=== PATIENT | female | born 1980 | race Caucasian/White ===

== ENCOUNTER → 2017-09-06 20:39 | Emergency (ER) | payer MEDICARE ==
[~2017-09-06 20:39] MED LIST: Lidocaine PATCH 5%* 1 PATCH TRANSDERM SCH; NS 0.9% 1000 ML* 1,000 ML IV ONE; PROCHLORPERAZINE INJ 5 MG/ML 2 ML VIAL IV ONE; diPHENhydraMINE IV* 50 MG/ML 1 ml VIAL (BENADRYL) IV ONE; methylPREDNISolone SOD 40 MG* 1 ML VIAL IV ONE
[2017-09-06 20:47] VITALS: BP 139/91
--- OUTSIDE RECORDS SUMMARY | 2017-09-06 21:08 | XMS REPORT ---
:1980 External Reference #:[id number] Author Organization [facility] Address [address] [place] [address] Phone [phone] Care Team Providers Name Role Phone Jazmin Shanks M.D. Care Team Information Milling Supervisor Unavailable Jazmin Shanks M.D. Primary Care Physician Unavailable Payers Type Date Identification Numbers Payment Provider Subscriber Medicare Primary Policy Number: [id number] Medicare [place] PayID: [id number] [address] [place] [address] Medigap Part B Effective: Policy Number: Out Of Area [place] 2016 [id number] BCBS Expires: 2017 PayID: [id number] [address] [address] [place] [address] Problems Description No Information Family History Date Family Member(s) Problem(s) Comments : (age 49 Father due to Suicide Years) Mother 70 Mother Mental Illness : (age 20 First Sister due to Bleeding Placenta Previa Years) : (age 44 Second Sister due to Dilated Years) cardiomyopathy Second Sister Carcinoma Of Thyroid Social History Type Date Description Comments Marital Status Legal Status: Occupation Disabled ETOH Use Denies alcohol use Smoking Nonsmoker Allergies, Adverse Reactions, Alerts Date Description Reaction Status Severity Comments 08/14/2017 Sulfa active 08/14/2017 Celexa active Medications Medication Date Status Form Strength Qnty SIG Indications Ordering Provider Pepperment 08/14/ Active Spirit 2 po tid 2017 Shantel valdez MD Temazepam / Active Capsules 30mg 15cap take 1 Hank T. s capsule Shantel by mouth MD courtney at bedtime Sucralfate / Active Tablets 1gm take 1 by Unknown 0000 mouth 4 times per day: before meals and at bedtime Dicyclomine HCL / Active Capsules 10mg 1 po 4x Unknown 0000 day before meals and at hs Quetiapine / Active Tablets 300mg take 1 Unknown Fumarate 0000 tablet by mouth every evening at bedtime Estradiol / Active Tablets 1mg 1 by Unknown 0000 mouth every day Lorazepam / Active Tablets 1mg 90tab take up Hank Hsu 0000 s to 6 Shantel tablets MD courtney by mouth daily Omeprazole / Active Capsules 40mg 1 po bid Unknown [address] DR Buspirone HCL / Active Tablets 10mg 3 po bid Unknown 0000 Lamotrigine / Active Tablets 100mg 2 1/2 Unknown 0000 tablets po q hs Fluvoxamine / Active Tablets 100mg 3 tabs po Unknown Maleate 0000 q hs Tramadol HCL / Active Tablets 50mg 120ta 1 by Hank Hsu 0000 bs mouth Shantel four MD courtney times a day Topiramate / Active Tablets 100mg 1 po bid Unknown 0000 Clonazepam / Active Tablets 1mg 30tab 2 by Hank Hsu 0000 s mouth Shantel every at MD courtney bedtime Ondansetron / Active Tablets 4mg 1 orally Unknown 0000 Dispers q 8 hr prn Nystatin / Active Cream [id number] apply to Unknown 0000 /GM affected area 2x day until rash resolved Nasacort Allergy / Active Aerosol 55mcg/Act spray 2 Unknown 24HR 0000 sprays in each nostril qd Acetaminophen / Active Tablets 500mg 2 po q 6 Unknown 0000 hr prn Ibuprofen 200 / Active Tablets 200mg 2 po q 6 Unknown 0000 hrs prn Diphenhydramine / Active Capsules 25mg 2 po q 6 Unknown HCL 0000 hr prn Loperamide HCL / Active Capsules 2mg 2-4 Unknown 0000 capsules bid prn Artificial Tears / Active Solution 0.1-0.3% prn Unknown PF 0000 Systane Nighttime / Active Ointment use at Unknown 0000 bedtime prn Calcium Magnesium / Active Tablets 300-300mg 1 po tid Unknown 750 0000 Multivitamin / Active Chewtabs on po bid Unknown Adult 0000 Vitamin D3 / Active Capsules 50mcg 1 by Unknown 0000 mouth every day Vitamin B12 / Active Tablets 100mcg qd Unknown 0000 Vitamin C / Active Chewtabs 500mg 1 po qd Unknown 0000 Culturelle / Active Capsules 1 po qd Unknown Digestive Health 0000 Apple Cider / Active Capsules 188mg 1 po bid Unknown Vinegar 0000 Vital Signs Date Vital Result Comment 08/14/2017 BP Systolic 120 mmHg BP Diastolic 68 mmHg Heart Rate 84 /min Body Temperature 98.2 F Respiratory Rate 16 /min Height 69 inches 5'9" Weight 193.00 lb BMI (Body Mass Index) 28.5 kg/m2 Results Description No Information Procedures Description No Information Plan of Care Future Appointment(s):11/20/2017 1:20 pm - Hank Edwards MD at [facility] Cuvhbx2608/14/2017 - Hank Edwards MDF41.1 Generalized anxiety jhhhykdtM53.12 Post-traumatic stress disorder, adducvvK68.26 Other intervertebral disc displacement, lumbar gezmlzS81.93 Unspecified Eustachian tube disorder, hdpvdxkvrL11.4 Chronic pain coqwcfxmC20.4 Chronic or unspecified duodenal ulcer with hemorrhageAllNew Medication:PeppermentComments:~B_~U_ Medication Management~b_~u_ Patient Understands medications she's taking? Yes No Are there Barriers to Adherence? Yes No Has the patient been asked about herbal supplements and therapies, and OTC meds? Yes No
--- NOTE | 2017-09-06 22:31 | ED ---
Complex/Multi-Sys Presentation - HPI Summary HPI Summary: Patient presents with multiple issues this evening. Reports she has acute on chronic lower back pain which she's had for many years. Reports she was diagnosed with degenerative disease in her 20s and had a laminectomy of her L5- S1 in her 30s in [place]. She gets radicular symptoms down her right side LE however tonight she is getting them worse than usual and into the left side which is new. Denies weakness however she has paresthesia on the right which is normal for her - no change tonight. No paresthesia or weakness in the left. Denies change in bowel or bladder habits and no saddle paresthesia. She denies any acute injury to have triggered her symptoms however she admits she's been more active since she moved here to [place] from [place] about a month ago. Admits she went through a prolonged divorce while there and has finally made it here. She is living with a close friend and has her young children with her as well. Her children have required mental health counseling and so she's been putting them in front of her own healthcare needs however she has established with a PCP. She is still trying to get her MRI images from [place] released to her current PCP so she may follow-up with neurology/neurosurgery. Additionally, she reports she is experiencing a migraine headache. She admits she gets these a couple times a month and is able to rescue herself with acetaminophen, Benadryl and Zofran however she's not had relief with this attempt this time. She takes Topamax 2 times a day which has reduced her number of migraines. She denies fever, chills, neck pain or stiffness, mid back pain although she reports some intermittent finger tingling during her migraine symptoms. No change in vision although she has some mild photophobia and is just exhausted from trying to fight to the pain of both her migraine and her lower back pain with radicular symptoms. History of gastric bypass surgery - she is not supposed to take NSAIDs and has a history of gastric ulcer. Also has many allergies to mental health medications. - History Of Current Complaint Chief Complaint: EDBackInjuryPain Time Seen by Provider: 09/06/17 21:32 Hx Obtained From: Patient - Allergies/Home Medications Allergies/Adverse Reactions: Allergies Allergy/AdvReac Type Severity Reaction Status Date / Time citalopram [From Celexa] Allergy Hives Verified 09/06/17 20:44 fluconazole Allergy Anaphylatic Verified 09/06/17 20:44 Shock midazolam [From Versed] Allergy Unknown Verified 09/06/17 20:44 Reaction Details nitrofurantoin Allergy Hives Verified 09/06/17 20:44 [From Macrobid] Sulfa (Sulfonamide Allergy Hives Verified 09/06/17 20:44 Antibiotics) venlafaxine [From Effexor] Allergy Hives Verified 09/06/17 20:44 Home Medications: Home Medications Acetaminophen [Tylenol] 1,000 mg PO Q6H PRN 09/06/17 [History Confirmed 09/06/17 ] Calcium Carbonate [Calcium] 1,000 mg PO DAILY 09/06/17 [History Confirmed ] Cyanocobalamin TAB* [Vitamin B12 TAB*] 500 mcg PO DAILY 09/06/17 [History Confirmed 09/06/17] Dicyclomine CAP* [Bentyl CAP*] 10 mg PO QID 09/06/17 [History Confirmed 09/06/17 ] Estradiol 1 mg PO DAILY 09/06/17 [History Confirmed 09/06/17] FluvoxaMINE (NF) [Fluvoxamine (NF)] 300 mg PO BEDTIME 09/06/17 [History Confirmed 09/06/17] LORazepam TAB(*) [Ativan 1 MG TAB (*)] 1 mg PO Q4H PRN 09/06/17 [History Confirmed 09/06/17] Magnesium Oxide [Magnesium] 400 mg PO DAILY 09/06/17 [History Confirmed 09/06/17 ] Multivitamin [Multivitamins] 1 cap PO BID 09/06/17 [History Confirmed 09/06/17] Omeprazole CAP* [Prilosec CAP* 20 MG] 40 mg PO BID 09/06/17 [History Confirmed 09/06/17] Ondansetron ODT TAB* [Zofran 4 MG Odt TAB*] 4 mg PO Q8H PRN 09/06/17 [History Confirmed 09/06/17] QUEtiapine TAB* [Seroquel 300 MG TAB*] 300 mg PO BEDTIME 09/06/17 [History Confirmed 09/06/17] Sucralfate TAB* [Carafate*] 1 gm PO QID 09/06/17 [History Confirmed 09/06/17] Temazepam CAP* [Restoril CAP*] 30 mg PO BEDTIME 09/06/17 [History Confirmed 02/23] Topiramate TAB(*) [Topamax 100 mg tab] 100 mg PO BID 09/06/17 [History Confirmed 09/06/17] Vitamin B Complex CAP* [B Complex CAP*] 1 cap PO DAILY 09/06/17 [History Confirmed 09/06/17] Vitamin D3 CAP/TAB (NF) 50 mcg PO DAILY 09/06/17 [History Confirmed 09/06/17] busPIRone TAB* [Buspar TAB*] 30 mg PO BID 09/06/17 [History Confirmed 09/06/17] clonazePAM TAB(*) [KlonoPIN TAB(*)] 2 mg PO BEDTIME 09/06/17 [History Confirmed 09/06/17] diphenhydrAMINE HCl [Benadryl Allergy] 50 mg PO DAILY PRN 09/06/17 [History Confirmed 09/06/17] lamoTRIgine TAB(*) [LaMICtal TAB(*)] 250 mg PO BEDTIME 09/06/17 [History Confirmed 09/06/17] traMADol TAB* [Ultram*] 50 mg PO Q6HR PRN 09/06/17 [History Confirmed 09/06/17] PMH/Surg Hx/FS Hx/Imm Hx Previously Healthy: Yes Endocrine/Hematology History: Denies: Hx Anticoagulant Therapy, Hx Blood Disorders, Autoimmune Disease Musculoskeletal History: Reports: Hx Back Problems - DDD dx'd in 20's; laminectomy in 30's - chronic LBP w/ radicular Rt pain EENT History: Reports: Other - eustachian tube dysfunction - myringotomy recently -no fever, no draniage Neurological History: Reports: Hx Migraine - takes daily topamax Psychiatric History: Reports: Hx Depression Infectious Disease History: No Infectious Disease History: Denies: Traveled Outside the [place] in Last 30 Days - Social History Lives: With Family Alcohol Use: Rare Substance Use Type: Reports: Prescribed Hx Tobacco Use: No Smoking Status (MU): Never Smoked Tobacco Review of Systems Constitutional: Negative Negative: Fever, Chills, Fatigue Positive: Photophobia. Negative: Blurred Vision, Diplopia ENT: Other - myringotomy B/L - no drainage Cardiovascular: Negative Respiratory: Negative Gastrointestinal: Negative Genitourinary: Negative Positive: Arthralgia, Myalgia Skin: Negative Positive: Headache All Other Systems Reviewed And Are Negative: Yes Physical Exam Triage Information Reviewed: Yes Vital Signs On Initial Exam: Initial Vitals Temp Pulse Resp BP Pulse Ox 98.1 F 75 18 139/91 98 09/06/17 20:44 09/06/17 20:44 09/06/17 20:44 09/06/17 20:44 09/06/17 20:44 Vital Signs Reviewed: Yes Appearance: Positive: Well-Appearing - good color, Well-Nourished, Pain Distress - sitting in chair with Rt leg flexed toward body and Lt leg extended - she shifts throughout eval - able to transition from chair to standing to into bed w/o difficutly or assistance Skin: Positive: Warm, Skin Color Reflects Adequate Perfusion, Dry - no ecchymosis, no erythema Head/Face: Positive: Normal Head/Face Inspection Eyes: Positive: Normal, EOMI, SHAR - no photophobia, Conjunctiva Clear ENT: Positive: Normal ENT inspection, Hearing grossly normal, Pharynx normal - mucosa moist, TMs normal - tubes in places B/L - no erythema, no drainage, no edema. Negative: Tonsillar swelling, Tonsillar exudate, Trismus, Muffled voice Dental: Negative: Abscess @ Neck: Positive: Nontender, No Lymphadenopathy, Other: - hypertonic scalenes Respiratory/Lung Sounds: Positive: Clear to Auscultation, Breath Sounds Present Cardiovascular: Positive: Normal, RRR, Pulses are Symmetrical in both Upper and Lower Extremities. Negative: Leg Edema Left, Leg Edema Right Musculoskeletal: Positive: Strength/ROM Intact, Pain @ - w/ flexion hips but is able to do so Neurological: Positive: Alert, Oriented to Person Place, Time, CN Intact II- III. Negative: Sensory/Motor Intact - motor intact but reports decreased sensation over Rt lateral LE which is unchanged from previous Psychiatric: Positive: Depressed Diagnostics - Vital Signs Vital Signs Temp Pulse Resp BP Pulse Ox 09/06/17 20:44 98.1 F 75 18 139/91 98 - Laboratory Lab Statement: Any lab studies that have been ordered have been reviewed, and results considered in the medical decision making process. Re-Evaluation - Re-Evaluation First Eval Change: Improved - FLORES somewhat improved w/ migraine cocktail - LBP still bothering her - she was sleeping upon recheck and appears comfortable lying on Lt side in stretcher Complex Multi-Symp Course/Dx Course Of Treatment: CT: DDD and disc herniation w/o central canal stenosis - multilevels with foraminal narrowing and what appears to be scar tissue. W/o neuro deficits tonight, will tx w/ steroid and have pt f/u w/ neurosurgery as her PCP as initiated. She will take her CD of her CT with her to her appt to aid in expediting her care as they have been waiting for an MRI from [place] and pt reports [place] medical staff has been giving her a hard time about releasing these records. Reviewed danger s/sx of when to return to ED. Pt agrees w plan - Diagnoses Provider Diagnoses: Lumbar disc herniation with radiculopathy, Migraine Discharge - Sign-Out/Discharge Documenting (check all that apply): Patient Departure - Discharge Plan Condition: Stable Disposition: HOME Prescriptions: predniSONE TAB* [Deltasone 20 MG TAB*] 60 mg PO DAILY #15 tab Patient Education Materials: Lumbar Radiculopathy (ED), Migraine Headache (ED) - Billing Disposition and Condition Condition: STABLE Disposition: Home
--- NOTE | 2017-09-07 07:43 | RAD ---
HISTORY: LBP w/ radiation into LE's history of laminectomy COMPARISONS: None TECHNIQUE: Multiple contiguous axial CT scans were obtained of the lumbar spine without intravenous contrast, with coronal and sagittal multiplanar reformations. FINDINGS: SPINAL CANAL: Evaluation of the central canal is limited on CT technique; however, there is no obvious canalicular mass or epidural hemorrhage. There is fusiform narrowing of central canal secondary to congenitally short pedicles. ALIGNMENT: There is minimal dextroscoliotic curvature of the spine. VERTEBRAL BODIES: There is mild anterolateral marginal osteophyte formation most pronounced at L5-S1. There is post surgical change to the right hemilamina at L5-S1. JOINTS: There is no subluxation or dislocation. MUSCULATURE: Unremarkable INTERVERTEBRAL DISCS: There is diffuse loss of intervertebral disc height throughout the spine. AXIAL IMAGES: T10-T11: There is no osseous neural foraminal narrowing or focal central canal stenosis. T11-T12: There is no osseous neural foraminal narrowing or focal central canal stenosis. T12-L1: There is no osseous neural foraminal narrowing or focal central canal stenosis. L1-L2: There is no osseous neural foraminal narrowing or focal central canal stenosis. L2-L3: There is no osseous neural foraminal narrowing or focal central canal stenosis. L3-L4: There is marginal osteophyte formation at the neural foramina bilaterally. There is moderate bilateral neuroforaminal narrowing. There is mild focal narrowing of the central canal. L4-L5: There is broad-based disc bulge. There is marginal osteophyte formation at the neural foramina bilaterally. There is moderate right neuroforaminal narrowing. There is mild focal narrowing of the central canal. L5-S1: There is marginal osteophyte formation at the neural foramina with right greater than left facet hypertrophy. There is severe right neural foraminal narrowing. There is asymmetric soft tissue density within the epidural space anteriorly in the right. There is no focal osseous central canal stenosis. SOFT TISSUES: There is post surgical change to the projected tract. There is large amount of stool within the colon. The visualized soft tissues of the abdomen are otherwise unremarkable. OTHER: None IMPRESSION: 1. FUSIFORM NARROWING OF THE CENTRAL CANAL SECONDARY TO CONGENITALLY SHORT PEDICLES. 2. THERE IS MORE FOCAL MILD NARROWING OF CENTRAL CANAL AT L3-L4 AND L4-L5. 3. THERE IS MULTILEVEL NEUROFORAMINAL NARROWING DESCRIBED ABOVE, MOST PRONOUNCED ON THE RIGHT AT L5-S1. 4. THERE IS MINIMAL SOFT TISSUE DENSITY WITHIN THE SUBDURAL SPACE ON THE RIGHT WHICH MAY BE POSTSURGICAL EPIDURAL FIBROSIS, THOUGH RESIDUAL/RECURRENT DISC PROTRUSION IS WITHIN THE DIFFERENTIAL. R2
== END | disposition home or self-care (01) ==
LOC: ED 20:39
DX: M51.16 Intervertebral disc disorders with radiculopathy, lumbar region (principal); G43.909 Migraine, unspecified, not intractable, without status migrainosus; Z79.899 Other long term (current) drug therapy; Z88.2 Allergy status to sulfonamides; Z88.8 Allergy status to other drugs, medicaments and biological substances
CPT/HCPCS: 72131; 96361; 96374; 96375; 99283; J0780; J1200; J2920

== ENCOUNTER 2017-11-05 09:40 | Observation (INO) | payer MEDICARE ==
--- OUTSIDE RECORDS SUMMARY | 2017-11-05 10:13 | XMS REPORT ---
:1980 External Reference #:[id number] Author Organization [facility] Address [address] [place] [address] Phone [phone] Care Team Providers Name Role Phone Jazmin Shanks M.D. Care Team Information Information Scientist Unavailable Jazmin Shanks M.D. Primary Care Physician Unavailable Payers Type Date Identification Numbers Payment Provider Subscriber Medicare Primary Effective: Policy Number: Medicare [place] 2013 [id number] PayID: [id number] [address] [address] Medigap Part B Effective: Policy Number: Out Of Area Austin Ventura 2016 [id number] [place] Expires: 2017 PayID: [id number] [address] [address] [place] [address] Problems Description No Information Family History Date [...] po tid 2017 Shantel valdez MD Temazepam 00// Active Capsules 30mg 30cap take 1 Hank T. s capsule Shantel by mouth MD courtney at bedtime Sucralfate / Active Tablets 1gm 120ta take 1 by Beverley Amezcua 0000 bs mouth 4 Carroll, times per ROOMING HOUSE INSPECTOR day: before meals and at bedtime Dicyclomine HCL / Active Capsules 10mg 120ca 1 by Beverley Amezcua 0000 ps mouth 4x Carroll, day ROOMING HOUSE INSPECTOR before meals and at at bedtime Quetiapine / Active Tablets 300mg take 1 Unknown Fumarate 0000 tablet by mouth every evening at bedtime Estradiol / Active Tablets 1mg 90tab 1 by Beverley Amezcua 0000 s mouth Carroll, every day ROOMING HOUSE INSPECTOR Lorazepam / Active Tablets 1mg 180ta take up Hank Hsu 0000 bs to 6 Shantel tablets MD courtney by mouth daily Omeprazole / Active Capsules 40mg 60cap 1 by Beverley Amezcua [address] DR s mouth Carroll, twice a ROOMING HOUSE INSPECTOR day Buspirone HCL / Active Tablets 10mg 3 po bid Unknown 0000 Lamotrigine / Active Tablets 100mg 2 1/2 Unknown 0000 tablets po q hs Fluvoxamine / Active Tablets 100mg 3 tabs po Unknown Maleate 0000 q hs Tramadol HCL / Active Tablets 50mg 180ta 1-2 by Beverley Amezcua 0000 bs mouth Carroll, four ROOMING HOUSE INSPECTOR times a day Topiramate / Active Tablets 100mg 1 po bid Unknown 0000 Clonazepam / Active Tablets 1mg 60tab 2 by Hank Hsu 0000 s mouth Shantel every at MD courtney bedtime Nystatin / Active Cream [id number] apply to Unknown 0000 /GM affected area 2x day until rash resolved Nasacort Allergy / Active Aerosol 55mcg/Act spray 2 Unknown 24HR 0000 sprays in each nostril qd Acetaminophen 00/ Active Tablets 500mg 2 po q 6 Unknown 0000 hr prn Ibuprofen 200 00// Active Tablets 200mg 2 po q 6 [...] 500mg 1 po qd Unknown 0000 Culturelle 00/ Active Capsules 1 po qd Unknown Digestive Health 0000 Apple Cider / Active Capsules 188mg 1 po bid Unknown Vinegar 0000 Prednisone / Active Tablets 3 po qd Unknown 0000 x5 days Ondansetron / Active Tablets 4mg 60tab 1 orally Beverley Amezcua 0000 Dispers s every 8 Carroll, hour as ROOMING HOUSE INSPECTOR needed for nausea or migraine Meloxicam 09/09/ Hx Tablets 15mg 14tab 1 by M54.16 Beverley Amezcua 2018 - s mouth Carroll, 10/12/ every day ROOMING HOUSE INSPECTOR 2018 until pain resolves Vital Signs Date Vital Result Comment 10/12/2017 BP Systolic 110 mmHg BP Diastolic 70 mmHg Heart Rate 76 /min Body Temperature 97.6 F Respiratory Rate 17 /min 09/09/2017 BP Systolic 114 mmHg BP Diastolic 60 mmHg Heart Rate 72 /min Body Temperature 98.1 F Respiratory Rate 16 /min Height 69 inches 5'9" Weight 193.00 lb BMI (Body Mass Index) 28.5 kg/m2 08/14/2017 BP Systolic 120 mmHg BP Diastolic 68 mmHg Heart Rate 84 /min Body Temperature 98.2 F Respiratory Rate 16 /min Height 69 inches 5'9" Weight 193.00 lb BMI (Body Mass Index) 28.5 kg/m2 Results Test Date Test Result H/L Range Note Laboratory test finding 09/09/2017 Quickstrep NEG Negative Procedures Description No Information Encounters Type Date Location Provider CPT E/M Dx Office Visit 09/09/2017 10:00a [place] [address] G89.4 M54.16 J02.9 Office Visit 08/14/2017 1:50p [place] [address] F41.1 F43.12 M51.26 H69.93 G89.4 K26.4 Plan of Care Future Appointment(s):11/20/2017 1:20 pm - Hank [facility]10/12/2017 - Beverley Hodges, NPG89.4 Chronic pain syndromeComments:We will continue to work on referring you to the pain clinic.M54.16 Radiculopathy, lumbar regionComments:You may benefit from a neurosurgical referral.K26.4 Chronic or unspecified duodenal ulcer with hemorrhageComments:Continue medication.
--- OUTSIDE RECORDS SUMMARY | 2017-11-05 10:13 | XMS REPORT | Continuity of Care Document ---
:1980 External Reference #:[id number] Author Name Bakari Pablo MD Address Delores [address] [place] [address] Care Team Providers Name Role Phone Hank Edwards M.D. Care Team Information Marine Designer Unavailable Hank Edwards M.D. Primary Care Physician Unavailable Payers Type Date Identification Numbers Payment Provider Subscriber Policy Number: [id number] [place] Carley Ventura PayID: [id number] [address] [facility] [place] [address] Advance Directives Description No Information Available Problems Date Description Provider Status Onset: 10/30/2017 Other specified disorders of Eustachian Bakari Pablo MD Active tube, bilateral Onset: 10/30/2017 Hearing loss Bakari Pablo MD Active Family History Date Family Member(s) Problem(s) Comments General Allergies Mother Hearing Loss Mother Heart Attack Mother Asthma Mother Migraine First Sister Asthma First Sister Heart Disease First Sister Thyroid Disease First Sister Migraine First Sister Cancer Cervical, Thyroid. Breast Second Sister Bleeding Disorders Second Sister Asthma Second Sister Migraine Social History Type Date Description Comments Sex Unknown Occupation Disabled Tobacco Use Start: Unknown End: Former Cigarette Smoker Smoked for 6 years. Unknown 1 Pack Daily Quit at age 23. 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 Omeprazole Active Capsules DR 40mg Jerry 000 M.DChrissy, Hank Sucralfate Active Tablets 1gm Jerry Rowell M.D., Hank Tramadol HCL Active Tablets 50mg Carroll N.P., 000 Beverley C. Lorazepam Active Tablets 1mg Beth, 000 Steve Estrella Psychiatrist Temazepam Active Capsules 30mg Beth, 000 Steve Estrella Psychiatrist Ondansetron Active Tablets 4mg Carroll N.P., 000 Dispers Beverley C. Fluvoxamine Active Tablets 100mg Unknown Maleate 000 Buspirone HCL Active Tablets 10mg Unknown 000 Lamotrigine Active Tablets 100mg Unknown 000 Quetiapine Active Tablets 300mg Unknown Fumarate 000 Topiramate Active Tablets 100mg Unknown 000 Estradiol Active Tablets 1mg Carroll N.P., 000 Beverley C. Meloxicam Active Tablets 15mg Carroll N.P., 000 Beverley C. Immunizations Description No Information Available Vital Signs Date Vital Result Comment 10/30/2017 9:41am Weight 188.00 lb Weight 85.277 kg Height 69 inches 5'9" Height in cm's 175.3 cm BMI (Body Mass Index) 27.8 kg/m2 Results Description No Information Available Procedures Date Code Description Status 10/30/2017 10182 Tympanometry Completed 10/30/2017 08380 Comprehensive Audiogram Completed Encounters Type Date Location Provider Dx Diagnosis Office Visit 10/30/2017 Daphnie,Gracie Pablo, H69.83 Other specified 9:30a 02/06/07 disorders of Eustachian tube, bilateral H91.93 Unspecified hearing loss, bilateral Plan of Treatment Future Appointment(s):05/03/2018 10:45 am - Bakari Pablo MD at [place] - Bakari Pablo MDH69.83 Other specified disorders of Eustachian tube, bilateralComments:The patient is here for evaluation of bilateral eustachian tube dysfunction, previous eustachian tube dilatation with bilateral tympanostomy tubes. Clinically improved. Mild hearing loss bilaterally.Most likely related to the tympanostomy tubes. Recheck back 6 months. Sooner if symptoms return.H91.93 Unspecified hearing loss, bilateral
--- OUTSIDE RECORDS SUMMARY | 2017-11-05 10:13 | XMS REPORT ---
:1980 External Reference #:[id number] Author Organization [facility] Address [address] [place] [address] Phone [phone] Care Team Providers Name Role Phone Jazmin Shanks M.D. Care Team Information Operator Engineer Unavailable Jazmin Shanks M.D. Primary Care Physician Unavailable Payers Type Date Identification Numbers Payment Provider Subscriber Medicare Primary Effective: Policy Number: Medicare [place] Carley Ventura 2013 [id number] PayID: [id number] [address] [place] [address] Medigap Part B Effective: Policy Number: Out Of Area Austin Ventura 2016 [id number] BCBS Expires: 2017 PayID: [id number] [address] [address] [place] [address] Problems Description No Information Family History Date [...] Comments 08/14/2017 Sulfa active 08/14/2017 Celexa active 11/02/2017 Effexor active 11/02/2017 Macrobid active 11/02/2017 Fluconazole active Medications Medication Date Status Form Strength Qnty SIG Indications Ordering Provider Pepperment 08/14/ Active Spirit 2 po tid Hank valdez MD Temazepam / Active Capsules 30mg 30cap take 1 Hank Chrissy s capsule Shantel by mouth MD courtney at bedtime Sucralfate / Active Tablets 1gm 120ta take 1 by Beverley Aemzcua 0000 bs mouth 4 Carroll, times per BUSINESS CASE ANALYST day: before meals and at bedtime Dicyclomine HCL / Active Capsules 10mg 120ca 1 by Beverley Amezcua 0000 ps mouth 4x Carroll, day BUSINESS CASE ANALYST before meals and at at bedtime Estradiol / Active Tablets 1mg 90tab 1 by Beverley Amezcua 0000 s mouth Carroll, every day BUSINESS CASE ANALYST Lorazepam / Active Tablets 1mg 180ta take up Hank Hsu bs to 6 Shantel tablets MD courtney by mouth daily Omeprazole / Active Capsules DR 40mg 60cap 1 by Beverley Amezcua 0000 s mouth Carroll, twice a BUSINESS CASE ANALYST day Buspirone HCL / Active Tablets 10mg 3 po bid Unknown 0000 Lamotrigine / Active Tablets 100mg 3 tablets Unknown 0000 po q hs Fluvoxamine / Active Tablets 100mg 3 tabs po Unknown Maleate 0000 q hs Tramadol HCL / Active Tablets 50mg 180ta 1-2 by Beverley Amezcua 0000 bs mouth Carroll, four BUSINESS CASE ANALYST times a day Topiramate / Active Tablets 100mg 1 po bid Unknown 0000 Clonazepam / Active Tablets 1mg 60tab 2 by Hank Shadi 0000 s mouth Shantel every at MD courtney bedtime Nystatin / Active Cream [id number] apply to Unknown 0000 t/GM affected area 2x day until rash resolved Acetaminophen / Active Tablets 500mg 2 po q 6 Unknown 0000 hr prn Ibuprofen 200 00/ Active Tablets 200mg 2 po q 6 Unknown 0000 hrs prn Diphenhydramine / Active Capsules 25mg 2 po q 6 Unknown HCL 0000 hr prn Loperamide HCL / Active Capsules 2mg 2-4 Unknown 0000 capsules bid prn Artificial Tears / Active Solution 0.1-0.3% prn Unknown PF 0000 Systane Nighttime 00/ Active Ointment use at Unknown 0000 bedtime [...] 188mg 1 po bid Unknown Vinegar 0000 Ondansetron / Active Tablets 4mg 60tab 1 orally Beverley Amezcua 0000 Dispers s every 8 Carroll, hour as BUSINESS CASE ANALYST needed for nausea or migraine Quetiapine / Active Tablets 100mg 4 tabs Unknown Fumarate 0000 by mouth at bedtime Flonase Allergy / Active Suspension 50mcg/Act 2 sprays Unknown Relief 0000 to each nostril every day Meloxicam 09/09/ Hx Tablets 15mg 14tab 1 by M54.16 Beverley Amezcua 2018 - s mouth Carroll, 10/12/ every day BUSINESS CASE ANALYST 2018 until pain resolves Quetiapine / Hx Tablets 300mg take 1 Unknown Fumarate 0000 - tablet by 11/02/ mouth 2018 every evening at bedtime Nasacort Allergy / Hx Aerosol 55mcg/Act spray 2 Unknown 24HR 0000 - sprays in 11/02/ each 2018 nostril qd Prednisone / Hx Tablets 3 po qd Unknown 0000 - x5 days 2017 Vital Signs Date Vital Result Comment 11/02/2017 BP Systolic 102 mmHg BP Diastolic 72 mmHg Heart Rate 80 /min Body Temperature 97.5 F Weight 190.00 lb 10/12/2017 BP Systolic 110 mmHg BP Diastolic [...] Location Provider CPT E/M Dx Office Visit 10/12/2017 1:45p [facility] Office Beverley Hodges, BUSINESS CASE ANALYST [address]009 G89.4 M54.16 K26.4 Office Visit 09/09/2017 10:00a [facility] Office Beverley Hodges, BUSINESS CASE ANALYST 95013 G89.4 M54.16 J02.9 Office Visit 08/14/2017 1:50p [facility] [place] [address] F41.1 F43.12 M51.26 H69.93 G89.4 K26.4 Plan of Care Future Appointment(s):11/20/2017 1:20 pm - Hank Edwards MD at [facility] Arljrk6711/02/2017 - Beverley Hodges, NPR10.11 Right upper quadrant painNew Labs:Ua - Micro (Fma)CBC Electronic (Fma New)C Reactive ProteinComp Metabolic-ALL Lab CompaniNew Xrays:Ultrasound Abdominal LimitedComments:We will start an outpatient work-up for this. At any time if your pain becomes severe, you have repeated vomiting, you develop fever, or if you have any other concerning symptoms, please go to the emergency department right away.M54.16 Radiculopathy, lumbar regionComments:Will continue to follow up on neurosurgery trbsiysaU67.4 Chronic pain syndromeComments:Keep trying to get into pain clinic.AllComments:1. Patient has been queried about patient's goals/ preferences and functional/lifestyle goals at relevant visits. If relevant, describe: Has been discussed, noted above2. Treatment goals as explainedto the patient: see above3. Are there barriers to meeting treatment goals? Yes If Yes, please describe: Barriers include possible insurance limits, disease process, and difficulty with lifestyle changes4. Self-Management goals as described to the patient: Yes, see above As always, we strongly encourage a healthy diet and making physical activity a part of your every day life. If you have questions about how or where to start, please contact the office.
[2017-11-05] MEDS ORDERED: Ondansetron INJ* 2 MG/ML VIAL IV ONE (10:21)
[2017-11-05] MEDS ORDERED: Morphine INJ** 4 MG/ML 1 ML CARPUJECT IV ONE ×3 (10:21→13:31)
[2017-11-05] MEDS ORDERED: Morphine INJ* 4 MG/ML 1 ML SYRINGE (NEW SYRINGE VERSION) ONE (10:25)
[2017-11-05] MEDS: Morphine INJ* 4 MG/ML 1 ML SYRINGE (NEW SYRINGE VERSION) IV ONE ×3 (11:21→15:09)
--- NOTE | 2017-11-05 11:41 | RAD ---
HISTORY: fall - lumbar and pelvic pain COMPARISONS: None TECHNIQUE: Multiple contiguous axial CT images are obtained of the pelvis , with coronal and sagittal multiplanar reconstructions, without intravenous contrast administration. FINDINGS: BONE DENSITY: Normal. BONES: There is no displaced fracture. JOINTS: There is mild osteoarthritis of the hips and SI joints. MUSCULATURE: Unremarkable ALIGNMENT: There is no dislocation. SOFT TISSUES: Unremarkable. OTHER FINDINGS: Degenerative changes are noted of the lumbar spine further described on the CT of the lumbar spine performed on the same date. IMPRESSION: NO ACUTE OSSEOUS INJURY. IF SYMPTOMS PERSIST, RECOMMEND REPEAT IMAGING.
--- NOTE | 2017-11-05 11:45 | RAD ---
HISTORY: lumbar and pelvic pain s/p fall COMPARISONS: September 06, 2017 TECHNIQUE: Multiple contiguous axial CT scans were obtained of the lumbar spine without intravenous contrast, with coronal and sagittal multiplanar reformations. FINDINGS: SPINAL CANAL: Evaluation of the central canal is limited on CT technique; however, there is no obvious canalicular mass or epidural hemorrhage. ALIGNMENT: The alignment is normal. VERTEBRAL BODIES: There is post surgical change to the right hemilamina at L5-S1. There is anterolateral marginal osteophyte formation most pronounced at L5-S1. Again noted is diffuse narrowing of the central canal secondary to congenitally short pedicles. JOINTS: There is facet hypertrophic change most pronounced on the right at L5-S1. MUSCULATURE: Unremarkable INTERVERTEBRAL DISCS: There is diffuse loss of intervertebral disc height throughout the spine. AXIAL IMAGES: T12-L1: There is no osseous neural foraminal narrowing or central canal stenosis. L1-L2: There is no osseous neural foraminal narrowing or central canal stenosis. L2-L3: There is no osseous neural foraminal narrowing or central canal stenosis. L3-L4: There is a broad-based disc bulge. There is no osseous neural foraminal narrowing. There is mild narrowing of the central canal.. L4-L5: There is broad-based disc bulge with ligamentous hypertrophy. There is mild bilateral neuroforaminal narrowing. There is mild narrowing of the central canal. L5-S1: There is post surgical change to the right hemilamina. There is right greater than left facet hypertrophy with marginal osteophyte formation at the right neural foramen. There is severe right neural foraminal narrowing. There is no osseous central canal stenosis. Asymmetric epidural soft tissue noted on the previous examination is not well-visualized on the current examination. SOFT TISSUES: The visualized soft tissues of the abdomen are unremarkable. There is post surgical change to the upper GI tract. OTHER: None IMPRESSION: 1. DEGENERATIVE DISC DISEASE AND OSTEOARTHRITIS. 2. THERE IS MILD NARROWING OF THE CENTRAL CANAL AT L3-L4 AND L4-L5. 3. THERE IS NEUROFORAMINAL NARROWING MOST PRONOUNCED ON THE RIGHT AT L5-S1. 4. NO ACUTE OSSEOUS INJURY TO THE LUMBAR SPINE.
--- NOTE | 2017-11-05 12:00 | ED ---
Back Pain - HPI Summary HPI Summary: Asians a 37-year-old female with history of L5-S1 discectomy in 2006 with a revision in 2008. She uses a cane and a walker intermittently at baseline. She states last evening she fell down one flight of stairs and is endorsing pain over the low back which is radiating into the right groin and down into the leg. She denies any bladder or bowel dysfunction out of the ordinary for her, however she has been endorsing numbness to the for any M with some difficulty starting and stopping stream. This is not new over the past day and isn't present for many years. She denies hitting her head or any LOC. She does endorse hitting her bilateral elbows and there is some ecchymosis noted to both. She has full range of motion without worsening pain bilaterally. While this happened overnight she states she did not come into the ED as she was able to take her at home tramadol at the time and go back to sleep. Denies any numbness or tingling into the bilateral lower extremities. - History of Current Complaint Chief Complaint: EDBackInjuryCintia Stated Complaint: BACK PAIN,HIP PAIN Time Seen by Provider: 11/05/17 09:58 Hx Obtained From: Patient Onset/Duration: Sudden Onset Onset/Duration: Started Hours Ago Timing: Constant Back Pain Location: Is Discrete @ - low back pain, Radiates To - right groin and right leg Severity Initially: Severe Severity Currently: Severe Pain Intensity: 10 Pain Scale Used: 0-10 Numeric Character: Aching Alleviating Symptom(s): Rest, Position Associated Signs And Symptoms: Negative: Swelling, Redness, Bruising, Weakness, Numbness, Bladder Incontinence, Bowel Incontinence, Weight Loss, Pain with Weight Bearing - Risk Factors AAA Risk Factors: Negative TAD Risk Factors: Negative Cauda Equina Risk Factors: Perineal Anesthesia - this is at basline for patient x many years, Lower Extremity Weakness - again, this is at baseline Epidural Abscess Risk Factors: Negative, Lower Extremity Weakness - Allergies/Home Medications Allergies/Adverse Reactions: Allergies Allergy/AdvReac Type Severity Reaction Status Date / Time citalopram [From Celexa] Allergy Hives Verified 11/05/17 09:46 fluconazole Allergy Anaphylatic Verified 11/05/17 09:46 Shock midazolam [From Versed] Allergy Unknown Verified 11/05/17 09:46 Reaction Details nitrofurantoin Allergy Hives Verified 11/05/17 09:46 [From Macrobid] Sulfa (Sulfonamide Allergy Hives Verified 11/05/17 09:46 Antibiotics) venlafaxine [From Effexor] Allergy Hives Verified 11/05/17 09:46 PMH/Surg Hx/FS Hx/Imm Hx Previously Healthy: Yes Endocrine/Hematology History: Denies: Hx Anticoagulant Therapy, Hx Blood Disorders Musculoskeletal History: Reports: Hx Back Problems - DDD dx'd in 's; laminectomy in 's - chronic LBP w/ radicular Rt pain Neurological History: Reports: Hx Migraine - takes daily topamax Psychiatric History: Reports: Hx Depression - Surgical History Surgery Procedure, Year, and Place: hysterectomy, eustacian tube dysfunction surgery, L5-S1 laminectomy & discectomy, 1year later revision of laminectomy & discectomy - Immunization History Immunizations Up to Date: Yes Infectious Disease History: No Infectious Disease History: Denies: Traveled Outside the [place] in Last 30 Days - Social History Occupation: Unemployed Lives: With Family Alcohol Use: Rare Hx Substance Use: No Substance Use Type: Reports: Prescribed Hx Tobacco Use: No Smoking Status (MU): Never Smoked Tobacco Review of Systems Constitutional: Negative Negative: Fever, Chills, Fatigue, Skin Diaphoresis Negative: Palpitations, Chest Pain Negative: Shortness Of Breath, Cough Genitourinary: Negative Positive: no symptoms reported, see HPI Positive: Arthralgia - low back pain radiating into the R groin and R leg Negative: Rash, Bruising Positive: Weakness. Negative: Headache, Paresthesia, Numbness, Syncope, Slurred Speech Psychological: Normal All Other Systems Reviewed And Are Negative: Yes Physical Exam Triage Information Reviewed: Yes Vital Signs On Initial Exam: Initial Vitals Temp Pulse Resp BP Pulse Ox 97.7 F 87 16 136/88 100 11/05/17 09:42 11/05/17 09:42 11/05/17 09:42 11/05/17 09:42 11/05/17 09:42 Vital Signs Reviewed: Yes Appearance: Positive: Well-Appearing, Well-Nourished Skin: Positive: Warm, Skin Color Reflects Adequate Perfusion Head/Face: Positive: Normal Head/Face Inspection Eyes: Positive: EOMI, SHAR, Conjunctiva Clear Neck: Positive: Supple Respiratory/Lung Sounds: Positive: Clear to Auscultation, Breath Sounds Present Cardiovascular: Positive: RRR, Pulses are Symmetrical in both Upper and Lower Extremities Musculoskeletal: Positive: Other - right groin pain and r leg pain radiating from low back Neurological: Positive: Speech Normal Psychiatric: Positive: Normal, Affect/Mood Appropriate AVPU Assessment: Alert Diagnostics - Vital Signs Vital Signs Temp Pulse Resp BP Pulse Ox 11/05/17 11:21 18 11/05/17 10:32 19 11/05/17 09:42 97.7 F 87 16 136/88 100 - Laboratory Result Diagrams: 11/05/17 15:02 11/05/17 15:02 Lab Statement: Any lab studies that have been ordered have been reviewed, and results considered in the medical decision making process. Back Pain Course/Dx - Course Course Of Treatment: Patient is evaluated for acute on chronic low back pain after falling down the flight of stairs last evening. She was able to take tramadol with some relief. She is endorsing worsening pain at this time and on arrival she is given 4 mg morphine and 30 minutes later another 4 mg morphine as this did not improve her symptoms originally. CT lumbar and pelvis obtained which shows no acute findings. She continues to be unable to ambulate and is also complaining of feeling that she is not emptying her bladder fully, however denies a distended bladder or feeling an overflow sensation. No bowel dysfunction. She declines a digital rectal exam at this time. I have discussed the case with hospitalist, Dr. Willis who agrees to admit for pain control and possible further evaluation of her acute back pain. KAY performed with good rectal tone. Awaiting ability to urinate to discern if MRI is needed. - Diagnoses Differential Diagnosis/HQI/PQRI: Positive: Cauda Equina Syndrome, Compressive Cord Syndrome, Herniated Disc, Strain, Sprain Provider Diagnoses: Back pain Discharge - Sign-Out/Discharge Documenting (check all that apply): Patient Departure Signing out patient TO: Alka Willis - Discharge Plan Condition: Stable Disposition: [facility]ED [facility] Referrals: Jzamin Shanks MD [Primary Care Provider] - - Billing Disposition and Condition Condition: STABLE Disposition: Admitted to [facility]
[2017-11-05] MEDS ORDERED: Morphine VIAL* 4 MG/ML VIAL (1 ml vial) IV ONE (13:30)
[2017-11-05] MEDS ORDERED: LORazepam INJ* 2 MG/ML 1 ML VIAL IV PUSH ONE (14:48)
[2017-11-05] MEDS ORDERED: methylPREDNISolone 125 MG* 2 ML VIAL IV ONE (14:50)
[2017-11-05 15:11] LABS: ABS Basophils 0.1 10^3/ul (0-0.2); ABS Eosinophils 0.2 10^3/ul (0-0.6); ABS Lymphocytes 2.2 10^3/ul (1.0-4.8); ABS Monocytes 0.3 10^3/ul (0-0.8); ABS Neutrophils 1.9 10^3/ul (1.5-7.7); ABS Nucleated RBC 0 10^3/ul; Eosinophil % 5.2 % (0-6); Hematocrit 36 % (35-47); Hemoglobin 12.5 g/dl (12.0-16.0); Lymphocyte % 47.2 % (25-47); Mean Corpuscular HGB Conc 34 g/dl (31-36); Mean Corpuscular Hemoglobin 32 pg (27-31); Mean Corpuscular Volume 93 fL (80-97); Mean Platelet Volume 7.9 um3 (7.4-10.4); Nucleated Red Blood Cells % 0.1; Platelet Count 154 10^3/ul (150-450); Red Cell Distribution Width 13 % (10.5-15); White Blood Count 4.7 10^3/ul (3.5-10.8)
[2017-11-05 15:32] LABS: EGFR Non-African American 88.8 (>60)
[2017-11-05] MEDS ORDERED: HYDROmorphone INJ1* 1 MG/ML SYRINGE IV SLOW PU PRN (16:51)
[2017-11-05 18:18] LABS: Urine Appearance Clear; Urine Blood Negative (Negative); Urine Color Straw; Urine Ketones Negative (Negative); Urine Protein Negative (Negative); Urine Specific Gravity 1.005 (1.010-1.030); Urine Urobilinogen Negative (Negative)
[2017-11-05] MEDS: Dicyclomine CAP* 10 MG PO SCH ×2 (18:39→20:58)
[2017-11-05] MEDS: oxyCODONE TAB* 5 MG TAB PO PRN (18:39)
[2017-11-05] MEDS ORDERED: Gadoteridol* (CONTRAST) 279.3 MG/ML 10 ML IV ONE (19:36)
[2017-11-05] MEDS: Acetaminophen TAB* 325 MG PO PRN (20:59)
[2017-11-05] MEDS: clonazePAM TAB(*) 1 MG PO SCH (20:59)
[2017-11-05] MEDS: lamoTRIgine TAB(*) 100 MG PO SCH (21:00)
[2017-11-05] MEDS: Vitamin THERAPEUTIC TAB PO SCH (21:00)
[2017-11-05] MEDS: QUEtiapine TAB* 100 MG PO SCH (21:00)
[2017-11-05] MEDS: Temazepam CAP* 15 MG PO SCH (21:00)
[2017-11-05] MEDS: Omeprazole CAP* 20 MG PO SCH (21:01)
[2017-11-05] MEDS: Topiramate TAB(*) 100 MG PO SCH (21:01)
[2017-11-05] MEDS: busPIRone TAB* 10 MG PO SCH (21:01)
[2017-11-05] MEDS: LORazepam TAB(*) 1 MG PO SCH (21:01)
--- NOTE | 2017-11-05 21:09 | RAD ---
EXAM: MR Lumbar Spine Without And With Intravenous Contrast CLINICAL HISTORY: 37 years old, female; Pain and injury or trauma and signs and symptoms; Fall; Initial encounter; Lumbago; Low back pain; Injury date: 11/05/17; Injury details: Pt states she fell down staircase in the middle of the night last night. Urine retention; Prior surgery; Surgery date: 6+ months; Surgery type: Pt states hse had l5-s1 laminectomy and discectomy in 2006 with revision in 2008; Additional info: Fall, back pain unable to empty bladder TECHNIQUE: Magnetic resonance images of the lumbar spine without and with intravenous contrast in multiple planes. CONTRAST: 18 mL of PROHANCE administered intravenously. COMPARISON: No relevant prior studies available. FINDINGS: Vertebrae: See below. Marrow: Normal marrow signal intensity. No abnormal bone enhancement. Spinal cord: Cauda equina terminates at L1. Normal signal intensity of the visualized cord. No abnormal cord or epidural enhancement. No epidural collections. Soft tissues: Normal. DISCS/SPINAL CANAL/NEURAL FORAMINA: L1-L2: Mild disc height loss and symmetric disc bulge without disc protrusion or canal stenosis.The facet joints demonstrate mild degenerative hypertrophy and sclerosis. No neural foraminal narrowing. L2-L3: Mild disc height loss and symmetric disc bulge without protrusion and no canal stenosis.The facet joints demonstrate mild degenerative hypertrophy and sclerosis. No neural foraminal narrowing. L3-L4: Mild disc height loss with symmetric disc bulge causing no canal stenosis. Clip facets moderate No neural foraminal narrowing. L4-L5: Mild disc height loss with symmetric disc bulge causing no neural stenosis. Clip facets moderate No neural foraminal narrowing. L5-S1: Moderate disc height loss with rightward asymmetric disc bulge causing no canal stenosis. Bilateral L5 laminectomies. Moderate facet hypertrophy. No neural foraminal narrowing. IMPRESSION: Mild multilevel lumbar spondylopathy causing no canal stenosis or nerve root impingement to account for patient's symptomatology. Expected findings post L5 laminectomies.
--- NOTE | 2017-11-05 22:04 | HP ---
CC: Jazmin Shanks MD * HISTORY AND PHYSICAL: DATE OF ADMISSION: 11/05/17 PROVIDER: Elodia Izquierdo NP PRIMARY CARE PROVIDER: Jazmin Shanks MD ATTENDING PHYSICIAN WHILE IN THE HOSPITAL: Alka Willis DO * (dictated by Elodia Izquierdo NP) CONSULTING NEUROSURGEON: Dr. Nair. CHIEF COMPLAINT: 1. Fall. 2. Severe back pain. HISTORY OF PRESENT ILLNESS: Ms. Ventura is a 37-year-old female with a past medical history significant for back pain, migraines, anxiety, depression, PTSD , history of L5-S1 diskectomy and laminectomy with revision who reports that approximately between 2 and 3 a.m. this morning, she got up to go to the bathroom. She walked upstairs to the bathroom and then when she was walking back down to her bedroom, she lost her footing and slid on her back down a flight of stairs. She reports that her friend then assisted her to standing and back to bed. She reports that she has pain in her right groin and radiating down her right leg. She does report that she has chronic decreased sensation into the right lateral foot and decreased sensation to the right lateral calf that has been chronic since her surgery. She denies any recent illnesses, but does report that she has had some right upper abdominal pain that she is getting worked up as an outpatient and is scheduled to have an ultrasound. The patient also reports that she has been referred to a neurosurgeon and is currently waiting for an appointment. The patient denies any neck pain. She is able to move her head [id number]. She denied any loss of consciousness with the fall. She denies any recent fever or loss of appetite. Denies any chest pain or edema. Denies any cough, congestion, hemoptysis, or shortness of breath. She does report some nausea and does report right upper quadrant abdominal pain x2 weeks. Denies any gross hematuria or dysuria. She does have chronic right lower leg sciatic radicular pain and right lateral foot with decreased sensation. She denies any visual complaints. Denies any dysphagia. Denies any arthralgias or myalgias. Denies any rashes or lesions. She denies any psychosis, but does report some increased anxiety. She also reports her bladder feels as though she is unable to empty her bladder fully. Given her symptoms, we were asked to see and evaluate her for admission. PAST MEDICAL HISTORY: Significant for: 1. Back pain with L5-S1 diskectomy and laminectomy revision. 2. Migraine. 3. Anxiety. 4. Depression. 5. PTSD. PAST SURGICAL HISTORY: 1. L5-S1 diskectomy and laminectomy with revision. 2. Hysterectomy. 3. Cholecystectomy. 4. Gastric bypass. 5. Right ovary removed. 6. . MEDICATIONS: Home medications include: 1. Vitamin B complex 1 tab p.o. daily. 2. Acetaminophen 1000 mg p.o. q.6 hours. 3. Fluvoxamine 300 mg p.o. at bedtime. 4. Estradiol 1 mg p.o. daily. 5. Dicyclomine 10 mg p.o. 4 times a day. 6. Vitamin B12 500 mcg p.o. daily. 7. Lorazepam 1 mg p.o. q.6 hours. 8. Zofran 4 mg p.o. q.8 hours p.r.n. nausea. 9. Omeprazole 40 mg p.o. b.i.d. 10. Multivitamin 1 tab p.o. b.i.d. 11. Topamax 100 mg p.o. b.i.d. 12. Restoril 30 mg p.o. at bedtime. 13. Buspirone 30 mg p.o. b.i.d. 14. Vitamin D3 50 mcg p.o. daily. 15. Benadryl 50 mg p.o. p.r.n. 16. Klonopin 2 mg p.o. at bedtime. 17. Tramadol 50 mg p.o. q.6 hours p.r.n. pain. 18. Lamictal 300 mg p.o. at bedtime. ALLERGIES: She has an allergy to LACTOSE, FLUCONAZOLE, VERSED, MACROBID, SULFA ANTIBIOTICS, and EFFEXOR. FAMILY HISTORY: Grandfather and grandmother and mother with a history of [place]. No reported history of diabetes in the family. Sister with a history of cervical, breast, and thyroid cancer. Grandfather with a history of lung cancer. SOCIAL HISTORY: She denies any tobacco. Reports rare alcohol use. Denies any illicit drug use. The patient does not work. She is . She has 3 children. Surrogate decision maker in the event she is unable to make her own decisions . She is a full code. REVIEW OF SYSTEMS: There is no documented fever. No loss of appetite. Denies any chest pain or edema. Denies any cough, hemoptysis, or shortness of breath. Does report some nausea. Denies any diarrhea. Does report right upper quadrant abdominal pain x2 weeks, which is being managed as an outpatient. Denies any gross hematuria or dysuria. Denies any focal weakness. She does report some sensory loss to the right leg and decreased sensation to the right foot lateral aspect. Denies any visual complaints. Denies any dysphagia, arthralgias. Denies any rashes or lesions. Denies any psychosis. Does report increased anxiety. PHYSICAL EXAMINATION GENERAL: At this time, Ms. Ventura is a 37-year-old female lying on her left lateral side on the stretcher in the emergency room. She appears to be in moderate amount of pain. VITAL SIGNS: Temperature 98.1, heart rate 61, respirations 18, O2 saturation 97 % on room air, blood pressure 125/76. HEENT: Head is atraumatic, normocephalic. Eyes: EOMs are intact. Sclerae anicteric and not pale. Oral mucosa appeared to be moist. No oropharyngeal erythema. NECK: Supple. C-spine, no tenderness with palpation. LUNGS: Clear to auscultation bilaterally. No wheezes, rales, or rhonchi. CARDIAC: S1, S2. Regular rate and rhythm. No murmurs, rubs, or gallops. ABDOMEN: Soft and nontender. Bowel sounds are present x4. EXTREMITIES: Pulses are +2 bilaterally. There is no peripheral edema. She is able to move all 4 extremities with diminished strength in the right lower leg. NEUROLOGIC: She is awake, alert, oriented x3. Tongue is midline. Milk Hauler are equal. There are no gross focal neuro deficits. The patient does report the inability to empty her bladder. She did have a Auguste catheter placed in the emergency room, which produced 800 cc of yellow urine. SKIN: Intact. LABORATORY DATA AND DIAGNOSTIC STUDIES: WBCs are 4.7, RBCs 3.90, hemoglobin 12.5, hematocrit was 36, platelet count was 154,000. Sodium 140, potassium 4.1 , chloride was 111, carbon dioxide was 25, BUN was 10, creatinine 0.73, glucose was 89. Urine was within normal limits with the exception of specific gravity was 1.005. She had a CT of the lumbar spine. Radiologist's impression: Degenerative disk disease and osteoarthritis. There is mild narrowing in the central canal at L3- L4 and L4-L5. There is neuroforaminal narrowing most pronounced on the right at L5-S1. No acute osseous injury to the lumbar spine. She had a CT of the pelvis, no acute osseous injury. ASSESSMENT AND PLAN: Ms. Ventura is a 37-year-old female who presented to the emergency room today after complaints of lower back pain after a fall at home between 2 and 3 a.m. this morning. On evaluation, she was found to have moderate to severe tenderness to the lumbar spine. She does also report the inability to empty her bladder. Due to these concerns, we were asked to see and evaluate her for admission. 1. Back pain. I have consulted Dr. Nair from Neurosurgery. The patient is reporting bladder dysfunction and unable to void. The patient was able to void earlier in her admission to the emergency room, but now reports she is unable to void. She does have moderate to severe L-spine tenderness to palpation. She did have a rectal exam in the emergency room and rectal tone was intact circumferentially. At this time, we will get an MRI of her L-spine with and without contrast. She has had a Auguste placed and 800 cc of yellow urine returned. I suspect that her back pain is related to her chronic back pain from postsurgical pain related to L5-S1 laminectomy, diskectomy in the past but also in the differential is cauda equina due to her bladder dysfunction at this time. 2. Anxiety and depression. We will continue her home medications as previously prescribed. 3. Chronic back pain. She will continue on her home medications for back pain as previously prescribed. I will add Dilaudid 1 mg q.6 hours as needed for severe pain and oxycodone 5 mg p.o. q.4 hours as needed for pain. She can continue with Tylenol as needed for pain. 4. History of gastric bypass. The patient will continue on her home vitamins as previously prescribed. 5. DVT prophylaxis. I will place her on SCDs. 6. Code status. She is a full code. 7. Fluids, electrolytes, and nutrition. She can have a regular diet. TIME SPENT: Time spent on this admission was approximately 60 minutes, greater than half the time was spent [id number] with the patient obtaining my history and physical, the other half of the time was spent going over my plan of care and implementing my plan of care. I have discussed this with my attending, Dr. Alka Willis, she is in agreement with my plan. ELODIA IZQUIERDO, TIE BUCKER [id number]/CPS #: [id number] F [facility]PSON HOSPITALKanwal
[2017-11-06] MEDS: Acetaminophen TAB* 325 MG PO PRN ×5 (03:01→22:13)
[2017-11-06] MEDS: LORazepam TAB(*) 1 MG PO SCH ×4 (03:02→21:37)
[2017-11-06] MEDS: oxyCODONE TAB* 5 MG TAB PO PRN ×6 (03:02→23:51)
[2017-11-06] MEDS: busPIRone TAB* 10 MG PO SCH ×2 (08:32→21:36)
[2017-11-06] MEDS: Cyanocobalamin TAB* 500 MCG PO SCH (08:47)
[2017-11-06] MEDS: Dicyclomine CAP* 10 MG PO SCH ×4 (08:47→21:36)
[2017-11-06] MEDS: CMC:Estradiol TAB(NF) 1 MG TAB PO SCH (08:49)
[2017-11-06] MEDS: Omeprazole CAP* 20 MG PO SCH ×2 (08:49→21:36)
[2017-11-06] MEDS: Vitamin THERAPEUTIC TAB PO SCH ×2 (08:50→21:37)
[2017-11-06] MEDS: Topiramate TAB(*) 100 MG PO SCH ×2 (08:50→21:38)
--- NOTE | 2017-11-06 09:11 | CONS ---
CONSULTATION NOTE: DATE OF CONSULT: 11/05/17 HISTORY OF PRESENT ILLNESS: The patient is a very pleasant 37-year-old female with history of L5-S1 discectomy in 2006 and 2009 revision in [place]. The patient still gets significant back pain radiating to the right lower extremity. She reports that she did well after the first operation but had residual right lower extremity pain and numbness with weakness after the second operation. The patient was reported to have sustained a fall while she was taking the stairs to the basement yesterday, reports that she missed a step and she fell down the stairs. The patient reports that she went back to bed. At that time, she did not have any significant problems. She took some tramadol that she usually takes and this morning she had significant back pain radiating to the right lower extremity and difficulty ambulating, and for this reason, she was brought to the emergency room by her friend. The patient was admitted by medical service for pain control. In the emergency room, she was complaining of difficulty urinating, she did urinate once and then a Auguste catheter was placed. Requested to see the patient by the emergency service, again a history of laminectomy. The patient had a CT scan of her lumbar spine in the emergency room revealing postoperative changes at L5-S1 with degenerative disc disease. The patient reports that she has back pain and denies any other neck pain or thoracic pain. She reports that she has no weakness, numbness or tingling of the lower extremities with the exception of right lower extremity, which has significant pain as well as increased weakness compared to her baseline she reports and increased numbness compared to her baseline. She reports that at baseline she gets numbness on the right lower extremity radiating down to her right foot, especially in the outer aspect of her foot. The patient reports of a significant back pain radiating to the right lower extremity, but did not respond to pain medications that were given so far. She reports that she has difficulty ambulating. At baseline, she ambulates with a cane and occasionally with exacerbation of pain, she uses a walker. She denies any urinary or GI incontinence, although she reported some difficulty urinating prior to her Auguste placement and they felt that she will not be able to empty her bladder. The patient denies any perianal loss of sensation, although several questions had to be made for her to give an answer. The patient is . She has three children and recently moved from [place] to live in the area with support of her friend. The patient lives in her room in the short stay unit with presence of a nurse aide. PAST MEDICAL HISTORY: The patient with history of chronic back pain, history of migraine, history of depression, anxiety, agoraphobia. The patient has history of PTSD and obesity. PAST SURGICAL HISTORY: The patient has history of hysterectomy, oophorectomy, L5- S1 laminectomy and discectomy in 2006 and 2008. The patient also has a history of gastric Veronica-en-Y bypass. MEDICATIONS: The patient reports that she takes tramadol for pain and multiple medications for her depression and anxiety. ALLERGIES: The patient's allergies include CITALOPRAM, FLUCONAZOLE, MIDAZOLAM, SULFA and EFFEXOR. SOCIAL HISTORY: Tobacco negative. Alcohol occasionally. Recreational drug use negative. The patient is not working. She is on disability because of her chronic back pain and mental issues. 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 PHYSICAL EXAMINATION: The patient is in quite significant amount of pain. Her cooperation to history taking as well as physical examination is quite limited because of the pain. The patient has no tenderness to palpation of the thoracic or lumbar spine. She has full range of motion of the cervical spine. She is awake, alert, and oriented x3. Her pupils are equal and reactive. Cranial nerves II through XII are grossly intact. Motor 5/5 in all extremities with the exception of the right lower extremity which is 4/5, possibly antalgic , with 4-/5 on the right foot plantarflexion as well as dorsiflexion, EHL . Sensory is grossly intact to light touch except decreased sensation of the L5- S1 distribution. Deep tendon reflexes +1 bilaterally, trace on the right Achilles. No clonus. No Babinski. Nj's negative. Straight leg test negative on the left, on the right exam is limited due to pain. On rectal exam, the patient has present rectal tone. She has voluntary contraction, although her exam is somewhat limited due to poor cooperation. She does have decreased sensation on the right S1 distribution, although on repeat examination the patient gives inconsistent reports of loss of sensation which is not reproducible with repeat exams. STUDIES: The patient had a CT scan of the lumbar spine revealing degenerative disk disease with L5-S1 postoperative changes. The patient had an MRI of the lumbar spine revealing degenerative disc disease with disc height loss at L5-S1, with consolidative changes at L5-S1 with questionable scar formation around the right S1 nerve root, but there is no evidence of central stenosis or neuroforaminal stenosis to support a diagnosis of cauda equina. ASSESSMENT: The patient is a very pleasant 37-year-old female who has reported a recent history of fall with exacerbation of her chronic back pain radiating to the right lower extremity, with a history of several Lumbar laminectomies at L5-S1. PLAN: The patient has been admitted to the hospital by Internal Medicine for pain control. Her history and physical examination and MRI imaging does not support the evidence of cauda equina. Furthermore, according to the MRI findings, I think that conservative treatment will be her best option. I doubt that surgical intervention will help the pain and I would not recommend it. The patient had been evaluated in the past with trials for spinal cord stimulator as she reports without significant success. I think at this point, medical management of pain might be her best option. Thank you for allowing us to participate in the care of this patient. Please do not hesitate to contact our office in case if you have any further questions or concerns regarding the care of this patient. [id number]/CPS #: [id number] ERLIN
--- NOTE | 2017-11-06 12:58 | PN ---
Subjective Date of Service: 11/06/17 Interval History: Ms. Ventura reports continued severe low back pain that radiates into her right leg. She denies other complaint. Objective Active Medications: Acetaminophen (Tylenol Tab*) 650 mg PO Q4H PRN Buspirone HCl (Buspar Tab*) 30 mg PO BID KAREN Clonazepam (Klonopin Tab(*)) 2 mg PO BEDTIME KAREN Cyanocobalamin (Vitamin B12 Tab*) 500 mcg PO DAILY KAREN Dicyclomine HCl (Bentyl Cap*) 10 mg PO QID KAREN Estradiol (Estradiol Tab(Nf)) 1 mg PO DAILY KAREN; Protocol Fluvoxamine Maleate (Fluvoxamine (Nf)) 300 mg PO BEDTIME KAREN Hydromorphone HCl (Dilaudid Inj1s*) 1 mg IV SLOW PU Q4H PRN Lamotrigine (Lamictal Tab(*)) 300 mg PO BEDTIME KAREN Lorazepam (Ativan Tab(*)) 1 mg PO Q6H KAREN Multivitamins (Theragran Tab*) 1 tab PO BID KAREN Omeprazole (Prilosec Cap*) 40 mg PO BID KAREN Ondansetron HCl (Zofran Inj*) 4 mg IV Q4H PRN Oxycodone HCl (Roxycodone Tab*) 5 mg PO Q4H PRN Quetiapine Fumarate (Seroquel Tab*) 400 mg PO BEDTIME KAREN Temazepam (Restoril Cap*) 30 mg PO BEDTIME KAREN Topiramate (Topamax(*)) 100 mg PO BID [facility] Vital Signs: Temp Pulse Resp BP Pulse Ox 97.8 F 85 16 104/59 98 11/06/17 11:28 11/06/17 11:28 11/06/17 11:28 11/06/17 11:28 11/06/17 11:28 Oxygen Devices in Use Now: None Appearance: Female lying in bed in NAD Eyes: No Scleral Icterus Ears/Nose/Mouth/Throat: Mucous Membranes Moist Neck: Trachea Midline Respiratory: Symmetrical Chest Expansion and Respiratory Effort, Clear to Auscultation Cardiovascular: NL Sounds; No Murmurs; No JVD, No Edema Abdominal: NL Sounds; No Tenderness; No Distention Lymphatic: No Cervical Adenopathy Extremities: No Edema Skin: No Rash or Ulcers Neurological: Alert and Oriented x 3, NL Muscle Strength and Tone Nutrition: Taking PO's Result Diagrams: 11/05/17 15:02 11/05/17 15:02 Assess/Plan/Problems-Billing Assessment: Ms. Ventura is a 37 yo female with a PMH of chronic back pain, migraines, anxiety, PTSD and depression who was admitted on with back pain after falling down the stairs with acute on chronic back pain. - Patient Problems (1) Back pain Comment: - Lumbar MRI negative, appreciate Dr. Ayala consult, no indication for surgery. - Plan for dilaudid x 1 now, then oxycodone 10mg q 4hrs (2) Depression Comment: - with anxiety and PTSD. - Continue home meds. (3) DVT prophylaxis Comment: - Heparin SQ (4) Full code status Comment: Status and Disposition: OBV. Plan for aggressive pain management, anticipate discharge to home tomorrow.
[2017-11-06] MEDS: Ondansetron INJ* 2 MG/ML VIAL IV PRN ×2 (14:42→21:09)
[2017-11-06] MEDS ORDERED: HYDROmorphone INJ1* 1 MG/ML SYRINGE IV SLOW PU ONE (15:16)
[2017-11-06] MEDS: diPHENhydraMINE PO* 50 MG PO SCH (15:49)
--- NOTE | 2017-11-06 18:55 | PN ---
Progress Note - Progress Note Date of Service: 11/06/17 SOAP: Subjective: []No events ON. More comfortable this am. Objective: []VSS AAOx3 SHAR, CN II-XII grossly intact Motor 4-5/5 all extremities, except RtLE 4-/5 possibly antalgic Sensory grossly intact to light touch, except Rt L5, S1 distribution No tenderness to palpation of C/T/L spine. Assessment: []37 yof fall, exacerbation of chronic back and RLE pain, Hx of L5-S1 laminectomies Plan: []Monitor VS, Neurochecks AMANDEEP did not reveal and central or neuroforaminal stenosis. Discussed with patient regarding results of MRI. Doubt that surgical intervention will be helpful to the patient. Will be available if needed. Heriberto Nair MD
[2017-11-06] MEDS ORDERED: Loperamide CAP* 2 MG PO PRN (21:28)
[2017-11-06] MEDS: QUEtiapine TAB* 100 MG PO SCH (21:34)
[2017-11-06] MEDS: lamoTRIgine TAB(*) 100 MG PO SCH (21:37)
[2017-11-06] MEDS: Temazepam CAP* 15 MG PO SCH (21:37)
[2017-11-06] MEDS: clonazePAM TAB(*) 1 MG PO SCH (21:37)
[2017-11-06] MEDS: Heparin VIAL(*) 5000 UNITS/ML VIAL (FIVE THOUSAND) SUBCUT SCH (22:14)
[2017-11-07] MEDS: Acetaminophen TAB* 325 MG PO PRN ×3 (03:45→12:34)
[2017-11-07] MEDS: LORazepam TAB(*) 1 MG PO SCH ×2 (03:45→09:35)
[2017-11-07] MEDS: diPHENhydraMINE PO* 50 MG PO SCH (03:45)
[2017-11-07] MEDS: oxyCODONE TAB* 5 MG TAB PO PRN ×3 (03:47→12:33)
--- NOTE | 2017-11-07 05:45 | PN ---
Subjective Date of Service: 11/07/17 Interval History: Ms. Ventura reports feeling better though she continues to have pain in her back from her fall. She denies any new complaint. She has had the jones removed and is able to void. Objective Active Medications: Acetaminophen (Tylenol Tab*) 650 mg PO Q4H PRN Buspirone HCl (Buspar Tab*) 30 mg PO BID KAREN Clonazepam (Klonopin Tab(*)) 2 mg PO BEDTIME KAREN Cyanocobalamin (Vitamin B12 Tab*) 500 mcg PO DAILY KAREN Dicyclomine HCl (Bentyl Cap*) 10 mg PO QID KAREN Diphenhydramine HCl (Benadryl Po*) 50 mg PO Q12H KAREN Estradiol (Estradiol Tab(Nf)) 1 mg PO DAILY [facility]; Protocol Fluvoxamine Maleate (Fluvoxamine (Nf)) 300 mg PO BEDTIME KAREN Heparin Sodium (Porcine) (Heparin Vial(*)) 5,000 units SUBCUT Q8HR KAREN Lamotrigine (Lamictal Tab(*)) 300 mg PO BEDTIME KAREN Loperamide HCl (Imodium Cap*) 2 mg PO Q3H PRN Lorazepam (Ativan Tab(*)) 1 mg PO Q6H KAREN Multivitamins (Theragran Tab*) 1 tab PO BID KAREN Omeprazole (Prilosec Cap*) 40 mg PO BID KAREN Ondansetron HCl (Zofran Inj*) 4 mg IV Q4H PRN Oxycodone HCl (Roxycodone Tab*) 10 mg PO Q4H PRN Quetiapine Fumarate (Seroquel Tab*) 400 mg PO BEDTIME KAREN Temazepam (Restoril Cap*) 30 mg PO BEDTIME KAREN Topiramate (Topamax(*)) 100 mg PO BID [facility] Vital Signs: Temp Pulse Resp BP Pulse Ox 97.9 F 67 16 124/50 99 11/07/17 03:34 11/07/17 03:34 11/07/17 03:47 11/07/17 03:34 11/07/17 03:34 Oxygen Devices in Use Now: None Appearance: Female lying in bed in NAD Eyes: No Scleral Icterus Ears/Nose/Mouth/Throat: Mucous Membranes Moist Neck: Trachea Midline Respiratory: Symmetrical Chest Expansion and Respiratory Effort, Clear to Auscultation Cardiovascular: NL Sounds; No Murmurs; No JVD, No Edema Abdominal: NL Sounds; No Tenderness; No Distention Extremities: No Edema Skin: No Rash or Ulcers Neurological: Alert and Oriented x 3, NL Muscle Strength and Tone Nutrition: Taking PO's Result Diagrams: 11/05/17 15:02 11/05/17 15:02 Assess/Plan/Problems-Billing Assessment: Ms. Ventura is a 37 yo female with a PMH of chronic back pain, migraines, anxiety, PTSD and depression who was admitted on with back pain after falling down the stairs with acute on chronic back pain. - Patient Problems (1) Back pain Comment: - Pain improved. - Lumbar MRI negative, appreciate Dr. Ayala consult, no indication for surgery. - Continue oxycodone 10mg prn. (2) Depression Comment: - with anxiety and PTSD. - Continue home meds. (3) DVT prophylaxis Comment: - Heparin SQ (4) Full code status Comment: Status and Disposition: OBV. Discharge to home.
[2017-11-07] MEDS: Heparin VIAL(*) 5000 UNITS/ML VIAL (FIVE THOUSAND) SUBCUT SCH (06:09)
[2017-11-07] MEDS: Omeprazole CAP* 20 MG PO SCH (07:48)
[2017-11-07] MEDS: busPIRone TAB* 10 MG PO SCH (07:49)
[2017-11-07] MEDS: Cyanocobalamin TAB* 500 MCG PO SCH (07:49)
[2017-11-07] MEDS: Vitamin THERAPEUTIC TAB PO SCH (07:49)
[2017-11-07] MEDS: CMC:Estradiol TAB(NF) 1 MG TAB PO SCH (07:50)
[2017-11-07] MEDS: Dicyclomine CAP* 10 MG PO SCH ×2 (07:51→12:34)
[2017-11-07] MEDS: Topiramate TAB(*) 100 MG PO SCH (07:51)
[2017-11-07] MEDS: Ondansetron INJ* 2 MG/ML VIAL IV PRN (09:35)
[2017-11-07] MEDS ORDERED: Ondansetron ODT TAB* 4 MG SL PRN (09:37)
[2017-11-07 12:39] VITALS: BP 102/65
--- NOTE | 2017-11-08 06:26 | DS ---
CC: Dr. Jazmin Shanks.* DISCHARGE SUMMARY: DATE OF ADMISSION: 11/05/17 DATE OF DISCHARGE: 11/07/17 PRIMARY CARE PHYSICIAN: Dr. Jazmin Shanks. ATTENDING PHYSICIAN: Dr. Kalpana Gómez * (dictation provided by Carolyn Parrish NP ) PRIMARY DIAGNOSIS: Uncontrolled back pain after a fall, now resolved. SECONDARY DIAGNOSES: 1. Back pain with L5-S1 diskectomy and laminectomy revision. 2. Migraine. 3. Anxiety. 4. Depression. 5. Posttraumatic stress disorder. PAST SURGICAL HISTORY: 1. L5-S1 diskectomy and laminectomy. 2. Hysterectomy. 3. Cholecystectomy. 4. Gastric bypass. 5. Right ovary removed. 6. . MEDICATIONS: At the time of discharge are: 1. Quetiapine 400 mg p.o. at bedtime. 2. Vitamin E complex 1 cap p.o. daily. 3. Tylenol 1000 mg p.o. q.6 hours p.r.n. 4. Fluvoxamine 300 mg p.o. at bedtime. 5. Estradiol 1 mg p.o. daily. 6. Dicyclomine 10 mg p.o. 4 times a day. 7. Cyanocobalamin 500 mcg p.o. daily. 8. Lorazepam 1 mg p.o. q.6 hours as needed. 9. Ondansetron 4 mg p.r.n. 10. Omeprazole 40 mg p.o. b.i.d. 11. Multivitamin 1 cap p.o. b.i.d. 12. Topiramate 100 mg p.o. b.i.d. 13. Temazepam 30 mg p.o. at bedtime. 14. BuSpar 30 mg p.o. b.i.d. 15. Vitamin D3 of 50 mcg p.o. daily. 16. Benadryl p.r.n. 17. Clonazepam 2 mg p.o. at bedtime. 18. Tramadol 50 mg p.o. q.6 hours p.r.n. 19. Lamotrigine 300 mg p.o. at bedtime. 20. Oxycodone 5 mg 1 to 2 tabs p.o. q.4 hours p.r.n. (#20). 21. Tylenol 650 mg p.o. q.4 hours p.r.n. HOSPITAL COURSE: Ms. Ventura is a 37-year-old female with a past medical history as outlined above who presented to the hospital on 11/05/17 reporting a fall down the stairs at home. Please see the dictated H and P from Elodia Izquierdo NP for complete details. In brief, the patient reported that she had been up to go to the bathroom when she lost her footing and slid on her back down the stairs. She tried to stay at home and used her tramadol for pain relief, but when this was unsuccessful she presented to the emergency room for workup. She had no concerning or alarming signs, although she did have some right lower extremity weakness, this was chronic. She had a lumbar spine CT that showed "degenerative disk disease and osteoarthritis. There is mild narrowing of the central canal at L3-L4 and L4-L5. There is neuroforaminal narrowing most pronounced on the right at L5-S1. No acute osseous injury to the lumbar spine." She also had a pelvis CT which is read as follows: "No acute osseous injury. If symptoms persists, recommend repeat imaging." In the emergency room the patient initially had some difficulty urinating likely significantly due to her pain and trying to stand and a Auguste was placed; however, the patient has had Auguste removed and is urinating independently. Ms. Ventura was seen in consultation by Dr. Nair and I refer you to his note for complete details. He notes that her physical examination and MRI imaging do not support the evidence of cauda equina and he felt that conservative treatment would be her best option. No surgical intervention would be indicated at this time and he recommended pain control. Ms. Ventura was initially on hydromorphone IV, but this has been transitioned over to oxycodone orally which she has been using and tolerating well with good relief of her pain. Ms. Ventura is medically stable for discharge to home and follow up with Dr. Jazmin Shanks regarding ongoing management of her chronic medical conditions and this acute pain syndrome. DISPOSITION: To home. DIET: Regular. ACTIVITY: As tolerated. FOLLOWUP PLANS: Please follow up with Dr. Shanks in the next week regarding this acute hospitalization for uncontrolled back pain after a fall. TIME SPENT: Approximately 60 minutes were spent on the discharge of this patient, more than half the time spent with the patient at the bedside reviewing the events leading up to and during this hospitalization, performing the physical examination, and reviewing the plan of care. CAROLYN PARRISH NP [id number]/[facility] #: [id number] ERLIN
== END 2017-11-07 13:40 | disposition home or self-care (01) ==
LOC: ED 09:40 → SSU 16:28
PROVIDERS: ADMIT Hospitalist; ATTEND Internal Medicine
DX: M54.9 Dorsalgia, unspecified (principal); G43.909 Migraine, unspecified, not intractable, without status migrainosus; G89.29 Other chronic pain; F43.10 Post-traumatic stress disorder, unspecified; Z86.39 Personal history of other endocrine, nutritional and metabolic disease; F41.9 Anxiety disorder, unspecified; F32.9 Major depressive disorder, single episode, unspecified
CPT/HCPCS: 36415; 72131; 72158; 72192; 80053; 81003; 82550; 85025; 86140; 90471; 96374; 96375; 99283; A9270-GY; A9579; G0378; G8978-GP-CI; G8979-GP-CI; G8980-GP-CI; J1170; J1644; J2060; J2270; J2405; J2930

== ENCOUNTER 2018-03-14 14:50 | Emergency (ER) | payer MEDICARE, MEDICAID ==
[2018-03-14] MEDS ORDERED: Ondansetron INJ* 2 MG/ML VIAL IV ONE (15:09)
[2018-03-14] MEDS ORDERED: Morphine VIAL* 10 MG/ML 1 ML VIAL IV ONE ×2 (15:09→15:56)
[2018-03-14] MEDS ORDERED: NS 0.9% 1000 ML** 1,000 ML IV ONE ×2 (15:09→16:23)
--- NOTE | 2018-03-14 15:17 | ED ---
GI/ HPI - HPI Summary HPI Summary: 37-year-old female presents with right lower quadrant pain for the past 4 days. She states that the pain started almost in her right flank and went to right lower quadrant. She states she's been nauseous but no vomiting. She denies any fevers. No urination symptoms or no blood in her urine. has never had this pain before. No diarrhea or constipation. She tried her normal pain medication with minimal relief. Has history of hysterectomy, gallbladder removal, gastric bypass, and both ovaries removed. denies any abnormal vaginal discharge - History of Current Complaint Chief Complaint: EDAbdPain Time Seen by Provider: 03/14/18 14:58 Stated Complaint: ABD PAIN Pain Intensity: 8 - Additional Pertinent History Primary Care Physician: AD - Allergy/Home Medications Allergies/Adverse Reactions: Allergies Allergy/AdvReac Type Severity Reaction Status Date / Time citalopram [From Celexa] Allergy Hives Verified 02/02/18 08:41 fluconazole Allergy Anaphylatic Verified 02/02/18 08:41 Shock midazolam [From Versed] Allergy Unknown Verified 02/02/18 08:41 Reaction Details nitrofurantoin Allergy Hives Verified 02/02/18 08:41 [From Macrobid] Sulfa (Sulfonamide Allergy Hives Verified 02/02/18 08:41 Antibiotics) venlafaxine [From Effexor] Allergy Hives Verified 02/02/18 08:41 Home Medications: Home Medications Acetaminophen [Tylenol Extra Strength] 1,000 mg PO Q6HR PRN 03/14/18 [History Confirmed 03/14/18] Artificial Tears* 15 ML BTL [Polyvinyl Alcohol 1.4% OPTH*] 2 drop BOTH EYES BID PRN 03/14/18 [History Confirmed 03/14/18] Buprenorphine HCl [Belbuca] 150 mcg BUCCAL BID 03/14/18 [History Confirmed 03/14] Cholecalciferol (Vitamin D3) [Vitamin D3] 50 mcg PO DAILY 03/14/18 [History Confirmed 03/14/18] Estradiol (NF) 1 mg PO DAILY 03/14/18 [History Confirmed 03/14/18] Multivitamins/Minerals TAB* [Theragran/minerals TAB*] 1 tab PO BID 03/14/18 [ History Confirmed 03/14/18] Omeprazole (Nf) [Prilosec (NF)] 40 mg PO BID 03/14/18 [History Confirmed ] Ranitidine TAB (NF) [Zantac TAB (NF)] 300 mg PO DAILY 03/14/18 [History Confirmed 03/14/18] Sucralfate TAB* [Carafate*] 1 gm PO QID 03/14/18 [History Confirmed 03/14/18] diPHENhydraMINE PO* [Benadryl PO 50 MG CAP*] 50 mg PO DAILY PRN 03/14/18 [ History Confirmed 03/14/18] lamoTRIgine TAB(*) [LaMICtal TAB(*)] 300 mg PO BEDTIME 03/14/18 [History Confirmed 03/14/18] traMADol TAB* [Ultram*] 50 mg PO Q6H PRN MDD 2000 mg 03/14/18 [History Confirmed 03/14/18] PMH/Surg Hx/FS Hx/Imm Hx Endocrine/Hematology History: Denies: Hx Anticoagulant Therapy, Hx Blood Disorders Cardiovascular History: Reports: Other Cardiovascular Problems/Disorders - Mitral valve prolapse as a child Denies: Hx Pacemaker/ICD GI History: Reports: Hx Gastroesophageal Reflux Disease, Hx Irritable Bowel, Other GI Disorders - Frequent ulcers History: Reports: Other Problems/Disorders - frequent UTI's Musculoskeletal History: Reports: Hx Back Problems - DDD dx'd in 20's; laminectomy in 's - chronic LBP w/ radicular Rt pain Sensory History: Denies: Hx Contacts or Glasses, Hx Hearing Aid Opthamlomology History: Denies: Hx Contacts or Glasses Neurological History: Reports: Hx Migraine Psychiatric History: Reports: Hx Anxiety, Hx Depression, Hx Post Traumatic Stress Disorder, Other Psychiatric Issues/Disorders - agoraphobia Denies: Hx Panic Disorder - Surgical History Surgery Procedure, Year, and Place: hysterectomy, eustacian tube dysfunction surgery, L5-S1 laminectomy & [id number], revision of laminectomy & discectomy 2008, csection, LASIK EYE, GALLBLADDER, RUE AND Y GASTRIC BYPASS Infectious Disease History: No Infectious Disease History: Denies: Traveled Outside the [place] in Last 30 Days - Family History Known Family History: Positive: Non-Contributory - Social History Alcohol Use: None Hx Substance Use: No Substance Use Type: Reports: None Hx Tobacco Use: No Smoking Status (MU): Never Smoked Tobacco Review of Systems Negative: Fever Negative: Chest Pain Negative: Shortness Of Breath Positive: Abdominal Pain, Nausea. Negative: Vomiting, Diarrhea All Other Systems Reviewed And Are Negative: Yes Physical Exam Triage Information Reviewed: Yes Vital Signs On Initial Exam: Initial Vitals Temp Pulse Resp BP Pulse Ox 98.5 F 72 16 123/78 97 03/14/18 15:01 03/14/18 15:01 03/14/18 15:01 03/14/18 15:01 03/14/18 15:01 Vital Signs Reviewed: Yes Appearance: Positive: Well-Appearing Skin: Positive: Warm, Dry Head/Face: Positive: Normal Head/Face Inspection Eyes: Positive: Normal, Conjunctiva Clear ENT: Positive: Pharynx normal Respiratory/Lung Sounds: Positive: Clear to Auscultation, Breath Sounds Present Cardiovascular: Positive: Normal, RRR Abdomen Description: Positive: Soft, Other: - tenderness RLQ, positive rebound, pos rovsings Bowel Sounds: Positive: Present Musculoskeletal: Positive: Normal Neurological: Positive: Normal Psychiatric: Positive: Normal Diagnostics - Vital Signs Vital Signs Temp Pulse Resp BP Pulse Ox 03/14/18 15:01 98.5 F 72 16 123/78 97 - Laboratory Result Diagrams: 03/14/18 15:33 03/14/18 15:33 Lab Statement: Any lab studies that have been ordered have been reviewed, and results considered in the medical decision making process. Re-Evaluation - Re-Evaluation First Eval Re-Evaluation Time: 15:56 Change: Improved Comment: still in pain Second Eval Re-Evaluation Time: 16:47 Change: Improved Comment: pain still present and still nauseous Third Eval Re-Evaluation Time: 17:27 Change: Improved Comment: pain is now better GIGU Course/Dx - Course Course Of Treatment: 37-year-old female presents with right lower quadrant pain for the past 4 days. admits to nausea but no vomiting. She denies any fevers. No urination symptoms or blood in her urine. has never had this pain before. Has history of hysterectomy, gastric bypass, and both ovaries removed. On exam tenderness of right lower quadrant. Nontender right flank. Positive rebound. wbc normal. crp normal. urine no infection. gave pain medication and continues to be in pain. patient signed out to Cyrus WATKINS pending CT for disposition. - Diagnoses Differential Diagnoses - Female: Appendicitis, Pyelonephritis, Urinary Tract Infection Provider Diagnoses: Abdominal pain Discharge - Sign-Out/Discharge Documenting (check all that apply): Sign-Out Patient Signing out patient TO: Fazal Wright - Discharge Plan Referrals: Hank Edwards MD [Primary Care Provider] -
--- OUTSIDE RECORDS SUMMARY | 2018-03-14 15:17 | XMS REPORT | Continuity of Care Document ---
:1980 External Reference #:[id number] Author Name Alice Cooper Care Team Providers Name Role Phone Hank Edwards MD Primary Care Physician Unavailable Payers Type Date Identification Numbers Payment Provider Subscriber Policy Number: [id number] Medicare Carley Ventura PayID: [id number] [address] [place] [address] Policy Number: [id number] Medicaid Carlye Ventura Group Name: 1 1 [address] PayID: [id number] [place] [address] Advance Directives Type Date Description Status Comment Other Directive 11/20/2017 Health Care Proxy Current and Verified Problems Date Description Provider Status Onset: 01/09/2018 Gastroesophageal reflux disease Natalia Gustafson NP Active Onset: 01/09/2018 Bypass gastroenterostomy Natalia Gustafson NP Active Family History Date Family Member(s) Problem(s) Comments Father due to Pneumonia () Mother Mental Illness NOS Siblings 2 sister placenta previa at age 19 second sister due to heart disease Social History Type Date Description Comments Sex Unknown Lives With Children Occupation Disabled ETOH Use Never used alcohol Tobacco Use Start: Unknown Patient has never smoked Recreational Drug Use Denies Drug Use Smoking Status Reviewed: 03/01/18 Patient has never smoked Allergies, Adverse Reactions, Alerts Date Description Reaction Status Severity Comments 01/09/2018 Banana Extract Active 01/09/2018 Sulfa Antibiotics Hives Active 01/09/2018 Celexa Hives Active 01/09/2018 Midazolam Active 01/09/2018 Effexor Hives Active 02/14/2018 Fluconazole anaphylaxis Active Severe Medications Medication Date Status Form Strength Qnty SIG Indications Ordering Provider Nystatin 03/01 Active Suspension [id number] 473ml 2ml in t/ML each side Janay [employer] of mouth, swish, wipe tongue with wash cloth then swallow, four times a day for 10 days Magic Mouthwash 03/01 Active Misc 473un swish and its swallow as CATHI Gustafson directed Ranitidine 150 03/01 Active Tablets 150mg 180ta 2 tablets Natalia Maximum Strength bs by mouth CATHI Gustafson at noon Tramadol HCL Active Tablets 50mg Munson RASHARD Diallo Lorazepam Active Tablets 1mg Take 1 Unknown Tablet By Mouth Three Times Daily Maximum Daily Dose Of 3 Per Day Clonazepam Active Tablets 1mg Take 1 Unknown Tablet By Mouth Two Times Daily as Needed For Anxiety Maximum Daily Dose Of 2 Per Day Sucralfate Active Tablets 1gm Carroll, LUISA Ponce Quetiapine Active Tablets 300mg 2 tabs a Beth, day by leah Wilson MD Lamotrigine Active Tablets 150mg 2 by mouth Beth, once a day MD Steve Fluvoxamine Active Tablets 100mg Take 4 Unknown Maleate Tablets By Mouth Every Day Cyclobenzaprine Active Tablets 5mg Take 1 To Unknown HCL 2 Tablets By Mouth Three Times A Day as Needed For Muscle Pain Topiramate Active Tablets 100mg Beth, MD Steve Estradiol Active Tablets 1mg Carroll, LUISA Ponce Ondansetron Active Tablets 4mg Carroll Dispers LUISA Ponce Multi-Vitamin Active Tablets 1 by mouth Unknown every day Calcium Magnesium Active Tablets 300-300mg Unknown 750 Vitamin D3 Active Tablets Unknown Complete Vitamin B-12 Active Tablets 500mcg 1 by mouth Unknown Natural every day Eq Acetaminophen Active Tablets 500mg 1 by mouth Unknown Extra Strength every 6 hours as needed for headache Ibuprofen Active Capsules 200mg as needed Unknown Diphenhydramine Active Capsules 25mg one at Unknown HCL bedtime as needed Flonase Allergy Active Suspension 50mcg/Act spray 1 Unknown Relief spray in each nostril twice daily Loperamide HCL Active Capsules 2mg take one Unknown capsule by mouth two times daily Systane Overnight Active Gel 0.3% Unknown Therapy Lubricant Eye Dicyclomine HCL Active Capsules 10mg by mouth Unknown three times a day Belbuca Active Film 150mcg dissolves Munson, in mouth Imani, twice a [employer]IT[employer]IC-BC day Temazepam Hx Capsules 30mg Take 1 Unknown Capsule By - Mouth AT 12 Bedtime Needed Maximum Daily Dose Of 1 Per Day Nystatin Hx Cream [id number] Lauren, t/GM Jona Garza MD 03/01 Doxycycline Hx Capsules 100mg Carroll, Hyclate Beverley TenorioCFNP 02/08 Buspirone HCL Hx Tablets 15mg Beth, Jona Wilson MD 02/08 Buprenorphine HCL Hx Tablets Sub 8mg 1 in in Unknown / the - morning 02/28 and 1/2 at night Immunizations Description No Information Available Vital Signs Date Vital Result Comment 03/01/2018 1:35pm Height 69 inches 5'9" Weight 190.38 lb Heart Rate 68 /min BP Systolic 117 mmHg BP Diastolic 68 mmHg Respiratory Rate 18 /min Body Temperature 97.7 F O2 % BldC Oximetry 100 % BMI (Body Mass Index) 28.1 kg/m2 02/09/2018 12:20pm Height 69 inches 5'9" Weight 189.50 lb Heart Rate 85 /min BP Systolic 107 mmHg BP Diastolic 74 mmHg Respiratory Rate 18 /min Body Temperature 98.6 F 37 c O2 % BldC Oximetry 97 % BMI (Body Mass Index) 28.0 kg/m2 01/09/2018 2:07pm Height 69 inches 5'9" Weight 189.00 lb Heart Rate 75 /min BP Systolic 110 mmHg BP Diastolic 76 mmHg Respiratory Rate 18 /min Pain Level 7 back and legs O2 % BldC Oximetry 98 % BMI (Body Mass Index) 27.9 kg/m2 Results Description No Information Available Procedures Description No Information Available Encounters Type Date Location Provider Dx Diagnosis Office Visit 02/09/2018 [facility] Natalia Gustafson, K95.89 Other complications 1:00p [employer] of other bariatric procedure K25.9 Gastric ulcer, unsp as acute or chronic, w/o hemor or perf M54.5 Low back pain Office Visit 01/09/2018 1:15p [facility]enter[facility] Natalia Z98.84 Bariatric Janay, [employer] surgery status K95.89 Other complications of other bariatric procedure K22.2 Esophageal obstruction K25.9 Gastric ulcer, unsp as acute or chronic, w/o hemor or perf Office Visit 11/07/2017 10:38a [facility] Carolynadriana Parrish, M54.5 [facility] pain W10.9xxA Fall (on) (from) unspecified stairs and steps, init encntr Office Visit 11/06/2017 7:00a [facility] Vassilios M54.5 [facility] MD Joanie pain Office Visit 11/05/2017 7:00a [facility] M54.5 [facility] MD Joanie pain Office Visit 11/05/2017 10:37a [facility] Elodia Timbo, M54.5 [facility] [employer] pain Hospitalists M79.604 Pain in right leg W10.9xxA Fall (on) (from) unspecified stairs and steps, init encntr Plan of Treatment Future Appointment(s):04/25/2018 1:00 pm - Jevon Dalton MD at [facility] [id number]/24/2019 - Natalia Gustafson NPE86.0 [id number] Other complications of other bariatric [id number] Gastro-esophageal reflux disease with esophagitis
[2018-03-14 15:47] LABS: ABS Basophils 0.1 10^3/ul (0-0.2); ABS Eosinophils 0.2 10^3/ul (0-0.6); ABS Lymphocytes 2.2 10^3/ul (1.0-4.8); ABS Monocytes 0.3 10^3/ul (0-0.8); ABS Neutrophils 2.4 10^3/ul (1.5-7.7); ABS Nucleated RBC 0 10^3/ul; Eosinophil % 4.7 %; Hematocrit 39 % (35-47); Hemoglobin 13.4 g/dl (12.0-16.0); Lymphocyte % 42.9 %; Mean Corpuscular HGB Conc 34 g/dl (31-36); Mean Corpuscular Hemoglobin 32 pg (27-31); Mean Corpuscular Volume 95 fL (80-97); Mean Platelet Volume 8.4 fL (7.4-10.4); Nucleated Red Blood Cells % 0; Platelet Count 166 10^3/ul (150-450); Red Blood Count 4.14 10^6/ul (4.00-5.40); Red Cell Distribution Width 13 % (10.5-15); White Blood Count 5.2 10^3/ul (3.5-10.8)
[2018-03-14 16:15] LABS: ALT 16 U/L (7-52); AST 16 U/L (13-39); Albumin 4.5 g/dL (3.2-5.2); Albumin/Globulin Ratio 2.1 (1-3); Alkaline Phosphatase 69 U/L (34-104); Anion Gap 5 mmol/L (2-11); BUN/Creatinine Ratio 18.1 (8-20); Blood Urea Nitrogen 13 mg/dL (6-24); C Reactive Protein < 1.00 mg/L (<8.01); CO2 Carbon Dioxide 26 mmol/L (22-32); Calcium 9.2 mg/dL (8.6-10.3); Chloride 108 mmol/L (101-111); EGFR African American 109.1 (>60); EGFR Non-African American 90.2 (>60); Globulin 2.1 g/dL (2-4); Glucose 100 mg/dL (70-100); Potassium 4.3 mmol/L (3.5-5.0); Sodium 139 mmol/L (135-145); Total Protein 6.6 g/dL (6.4-8.9)
[2018-03-14 16:18] LABS: HCG Pregnancy 2.14 mIU/mL
[2018-03-14] MEDS ORDERED: Iohexol 300* (CONTRAST) 10 ML SDV IV ONE (16:40)
[2018-03-14] MEDS ORDERED: PROCHLORPERAZINE INJ 5 MG/ML 2 ML VIAL IV ONE (16:44)
[2018-03-14] MEDS ORDERED: HYDROmorphone INJ1* 1 MG/ML SYRINGE IV SLOW PU ONE (16:45)
[2018-03-14 17:18] LABS: Urine Appearance Clear; Urine Bilirubin Negative (Negative); Urine Blood Negative (Negative); Urine Color Straw; Urine Glucose Negative (Negative); Urine Ketones Negative (Negative); Urine Nitrite Negative (Negative); Urine Protein Negative (Negative); Urine Specific Gravity 1.008 (1.010-1.030); Urine Urobilinogen Negative (Negative)
--- NOTE | 2018-03-14 17:46 | ED ---
Progress - Progress Note Progress Note: Sign out received from Ivette WATKINS. HPI: 37-year-old female presents with right lower quadrant pain for the past 4 days. She states that the pain started almost in her right flank and went to right lower quadrant. She states she's been nauseous but no vomiting. She denies any fevers. No urination symptoms or no blood in her urine. has never had this pain before. No diarrhea or constipation. She tried her normal pain medication with minimal relief. Has history of hysterectomy, gallbladder removal, gastric bypass, and both ovaries removed. denies any abnormal vaginal discharge GENERAL: NAD. WDWN. No pain distress. SKIN: No rashes, sores, lesions, or open wounds. NECK: Supple. Nontender. No lymphadenopathy. CHEST: CTAB. No r/r/w. No accessory muscle use. Breathing comfortably and in no distress. CV: RRR. Without m/r/g. Pulses intact. Cap refill <2seconds ABDOMEN: Mild TTP RLQ and Right side of abdomen. Soft. No distention or guarding. No CVA tenderness. Bowel sounds present NEURO: Alert. PSYCH: Age appropriate behavior. Awaiting CT results. 1829 CT results: IMPRESSION: 1. Moderate to large amount of stool without obstruction. 2. Normal appendix. 3. No other acute disease seen. As above. To contact [facility] with a general question: Operations Center - [phone] For direct physician to physician contact: Physician Hotline - [phone] [facility] ([facility] Facility ID #[id number]) Discussed with pt. Her pain is a 2/10 and much improved. No fevers, chills, vomiting, diarrhea, constipation. Having a BM at least once daily and is soft and normal for her. No dysuria, vaginal discharge, or flank pain. Course/Dx - Course Course Of Treatment: 37-year-old female presents with right lower quadrant pain for the past 4 days. admits to nausea but no vomiting. She denies any fevers. No urination symptoms or blood in her urine. has never had this pain before. Has history of hysterectomy, gastric bypass, and both ovaries removed. On exam tenderness of right lower quadrant. Nontender right flank. wbc normal. crp normal. urine no infection. Pain is significantly improved. CT results as above. Discussed with pt. Will dc with f/u with PCP for a recheck of her symptoms. Given her multiple abdominal surgeries, I do have a suspicion adhesions might be the cause of her abdominal pain and can be further evaluated on an outpatient basis. - Diagnoses Provider Diagnoses: Abdominal pain Discharge - Sign-Out/Discharge Documenting (check all that apply): Patient Departure Patient Received Moderate/Deep Sedation with Procedure: No - Discharge Plan Condition: Stable Disposition: HOME Patient Education Materials: Abdominal Pain (ED) Referrals: Hank Edwards MD [Primary Care Provider] - 2 Days Additional Instructions: If you develop a fever, shortness of breath, chest pain, new or worsening symptoms - please call your PCP or go to the ED. Please follow up with your Primary doctor in 1-2 days for a recheck of your symptoms. If your pain worsens or if you are unable to tolerate eating or drinking - please return to the ED. - Billing Disposition and Condition Condition: STABLE Disposition: Home
[2018-03-14 18:32] VITALS: BP 113/69
== END 2018-03-14 18:53 | disposition home or self-care (01) ==
LOC: ED 14:50
DX: R10.31 Right lower quadrant pain (principal); R11.0 Nausea; K21.9 Gastro-esophageal reflux disease without esophagitis; Z87.440 Personal history of urinary (tract) infections; Z90.710 Acquired absence of both cervix and uterus; Z90.49 Acquired absence of other specified parts of digestive tract; Z98.84 Bariatric surgery status; Z90.722 Acquired absence of ovaries, bilateral; Z88.1 Allergy status to other antibiotic agents; Z88.2 Allergy status to sulfonamides; Z88.8 Allergy status to other drugs, medicaments and biological substances
CPT/HCPCS: 36415; 74177; 80053; 81003; 83690; 84702; 85025; 86140; 96361; 96374; 96375; 96376; 99283; J0780; J1170; J2270; J2405; Q9967

== ENCOUNTER → 2018-04-25 11:21 | Day surgery (SDC) | payer MEDICARE, MEDICAID ==
[~2018-04-25 11:21] MED LIST changes: +Buffered Lidocaine 1% SYRIN* 1 ML/SYRINGE INTRADERM ONE; +Dexamethasone IV* 4 MG/ML 1 ML (4 MG) ONE; +DiMENhydriNATE IV* 50 MG/ML VIAL IV PUSH PRN; +Lactated Ringers 1000 ML Bag* 1,000 ML IV SCH; +Lidocaine 2% PF * 5 ML VIAL ONE; -Lidocaine PATCH 5%* 1 PATCH TRANSDERM SCH; +Midazolam* 1 MG/ML 5 ML VIAL (5 MG) ONE; -NS 0.9% 1000 ML* 1,000 ML IV ONE; +Naloxone* 0.4 MG/ML 1 ML VIAL IV PRN; +Ondansetron INJ* 2 MG/ML VIAL ONE; -PROCHLORPERAZINE INJ 5 MG/ML 2 ML VIAL IV ONE; +Propofol* 10 MG/ML 20 ML BTL ONE; -diPHENhydraMINE IV* 50 MG/ML 1 ml VIAL (BENADRYL) IV ONE; +fentaNYL* 50 MCG/ML 2 ML VIAL (100 MCG VIAL) IV PRN; +fentaNYL* 50 MCG/ML 2 ML VIAL (100 MCG VIAL) ONE; -methylPREDNISolone SOD 40 MG* 1 ML VIAL IV ONE
[2018-04-25 16:33] VITALS: BP 118/83
--- NOTE | 2018-04-25 16:43 | PRO ---
DATE: 04/25/18 [facility] REFERRING PHYSICIANS: Dr. Hank Edwards; Imani Munson, CATHI (pain clinic). PROCEDURE: Upper gastrointestinal endoscopy and biopsy erythematous fold gastric pouch and thickened esophageal mucosa at 35 cm. 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 She was prediabetic before that surgery and lost from in the low 300s down to 189. She says in the last 3 months her trend has been to lose 5 more pounds. She says there were no gastrointestinal problems prior to the bypass. Now, she says there is a constant sense of nausea and she does have severe pains that go from the left periumbilical area up to the substernal area. They occur every week or 2 and last 5 to 15 minutes. The last one was last week at home. She also has episodes of vomiting sporadically 1 or 2 a month. One was just 2 days ago and not certainly linked to the pain. She also has a constant sense of nausea. She takes dicyclomine to control repetitive loose stools and on dicyclomine just goes once a day. After the gastric bypass, she was on omeprazole and says that it was a surgeon' s custom to taper that off between 4 and 6 months and she was never able to do so. She has been on the omeprazole ever since. At some point, it was made twice a day. It was not listed on her medication list December 2017, but had been continuous from her time in [place] right through to now. About a year and a half ago, while still in [place], upper endoscopy showed a marginal ulcer and Carafate was added. She sees a psychiatrist, Dr. Campos, every 1 to 2 months and is on numerous medications from him. It had been hoped that chronic back pain would be helped by losing weight, but it has not. She takes aspirin 325 mg 2 tablets most days of the week to prevent migraines. She was told not to take it for a week prior to this exam and has done so. She also takes buprenorphine (started by the pain clinic here), Ativan, Klonopin, cyclobenzaprine, Lamictal, Prozac 80 mg, Remeron 15 mg h.s., Restoril 30 mg, Seroquel and Topamax 100 mg b.i.d., Ultram 50 mg q.6, and Zofran p.r.n. She also takes Zantac that was added by the gastrointestinal nurse practitioner in December. She has 3 children, ages 14, 11 and 10. She was born and raised in [place], [place], but moved and was in [place] a few years back for 6 months. Informed consent was obtained and permission to discuss her situation with her friend. ENDOSCOPIST: Dr. Dalton. ANESTHESIA: Dr. Jarvis. FINDINGS: She is a substantially overweight, but not morbidly obese generally healthy-appearing woman with a somewhat flat affect and dysphoric countenance. She was positioned on her left side down. EGD: Larynx - intubated. Esophagus - easily entered and the mucosa is normal, though there are some areas that appeared to have mucosal thickening or scuffing from possible adherence of medication. There were no erosions. There were focal areas where the esophageal mucosa appeared thickened. These were 2 to 3 cm long. A biopsy was taken at 35 cm x2. There were no changes typical of allergy or viral effect or GERD. The EG junction is at 41 and snug. Gastric pouch - mild irritation focally, though no ulcer and no bleeding. Anastomosis - intact and normal. One suture seen. Jejunal limb - run for about 50 cm and completely normal. IMPRESSION: 1. Esophagitis - appears to be from medication adherence and probably a mild caustic effect. It could contribute to nausea. The number of medications she takes and their cognitive effect could predict inability to drink enough water or being attentive to that priority when taking meds. She needs to flush all her meds through. Reducing meds in general would appear a priority. 2. Mild gastritis pouch - probably related to medications also. 3. Normal anastomosis - no sign of a marginal ulcer whatsoever. 4. Chronic nausea - presumably a combination of effects including psychiatric issues, polypharmacy, etc. 5. Chronic pain issues - tapering her medications would appear a priority, though which one to start with is difficult to say. She can probably take her omeprazole just once a day and reduce the Carafate to once a day and/or p.r.n. [id number]/[facility] #: [id number] ERLIN
== END | disposition home or self-care (01) ==
LOC: OR 11:21
PROVIDERS: ATTEND Internal Medicine Gastroenterology
DX: K20.8 Other esophagitis (principal); K29.60 Other gastritis without bleeding; K21.9 Gastro-esophageal reflux disease without esophagitis; R10.9 Unspecified abdominal pain; R11.0 Nausea; Z98.84 Bariatric surgery status
CPT/HCPCS: 88305; J1100; J2250; J2405; J2704; J3010

== ENCOUNTER → 2018-06-20 11:40 | Day surgery (SDC) | payer MEDICARE, MEDICAID ==
[~2018-06-20 11:40] MED LIST changes: -Dexamethasone IV* 4 MG/ML 1 ML (4 MG) ONE; +Dexamethasone TAB* 4 MG ONE; +Dexamethasone TAB* 4 MG PO ONE; +Famotidine IV* 10 MG/ML 2 ML (20 mg) IV ONE; +Famotidine IV* 10 MG/ML 2 ML (20 mg) ONE; +Gelfoam 12-7 ADSORBABL SPONGE* 1 EA SPONGE ONE; +HYDROmorphone INJ1* 1 MG/ML SYRINGE IV PRN; -Lactated Ringers 1000 ML Bag* 1,000 ML IV SCH; -Ondansetron INJ* 2 MG/ML VIAL ONE; +Ondansetron ODT TAB* 4 MG ONE; +Ondansetron TAB* 4 MG PO ONE; +PROCHLORPERAZINE INJ 5 MG/ML 2 ML VIAL IV PRN; +Phenylephrine 0.5% NASAL* BTL ONE; +oxyCODONE/Acetamin 5/325 MG* TAB ONE; +oxyCODONE/Acetamin 5/325 MG* TAB PO PRN
[2018-06-20] MEDS: Lactated Ringers 1000 ML Bag* 1,000 ML IV SCH ×2 (12:15→12:26)
[2018-06-20 15:03] VITALS: BP 108/73
--- NOTE | 2018-06-20 18:28 | OP ---
DATE OF OPERATION: 06/20/18 - [facility] DATE OF : 76 SURGEON: Bakari Pablo MD PRE-OP DIAGNOSIS: Recurrent eustachian tube dysfunction with otalgia. POST-OP DIAGNOSIS: Recurrent eustachian tube dysfunction with otalgia. OPERATIVE PROCEDURE: Bilateral myringotomy and placement of tympanostomy T tubes. BRIEF HISTORY: This 37-year-old with previous history of eustachian tube symptoms, has had significant relief from T tubes, elected for repeat T tubes after the previous ones had extruded. DESCRIPTION OF PROCEDURE: The patient was taken to the operating room, general anesthetic was induced with bag and mask and then intubated with LMA. Ears were examined and microscope was utilized. Anterior-inferior myringotomy incisions were created in both ears, T tubes were then placed in both ears. The patient was then awakened and sent to the recovery room in stable condition. Instrument and sponge counts were correct. Blood loss minimal. [id number]/[facility] #: [id number] [facility]
== END | disposition home or self-care (01) ==
LOC: OR 11:40
PROVIDERS: ATTEND Otolaryngology
DX: H69.83 Other specified disorders of Eustachian tube, bilateral (principal); H91.93 Unspecified hearing loss, bilateral; H92.03 Otalgia, bilateral; Z87.891 Personal history of nicotine dependence
CPT/HCPCS: A9270-GY; C1776; J2250; J2704; J3010; J8540

== ENCOUNTER 2018-08-27 07:36 | Emergency (ER) | payer MEDICARE, MEDICAID ==
[2018-08-27] MEDS ORDERED: NS 0.9% 1000 ML** 1,000 ML IV ONE (07:54)
[2018-08-27] MEDS ORDERED: Ondansetron INJ* 2 MG/ML VIAL IV ONE (07:54)
[2018-08-27] MEDS ORDERED: Ketorolac INJ* 30 MG/ML 1 ML VIAL IV PUSH ONE (07:58)
--- NOTE | 2018-08-27 08:05 | ED ---
Abdominal Pain/Female - HPI Summary HPI Summary: Patient is a 37-year-old female who presents emergency department for worsening right lower quadrant abdominal pain times one week. Associated symptoms of nausea without vomiting, diarrhea or constipation. Denies associated sxs of vaginal discharge/bleeding, dysuria, fever, cough. Surgical history of complete hysterectomy, gastric bypass, cholecystectomy. Patient notes history of chronic back pain, GERD, anxiety and depression. Symptoms are moderate in severity. Moving makes symptoms worse. Nothing makes symptoms better. Patient currently prescribed benzodiazepines and narcotics. - History of Current Complaint Chief Complaint: EDAbdPain Stated Complaint: ABD PAIN/LIGHT HEADED PER PT Time Seen by Provider: 08/27/18 07:43 Hx Obtained From: Patient Pain Intensity: 9 Allergies/Adverse Reactions: Allergies Allergy/AdvReac Type Severity Reaction Status Date / Time citalopram [From Celexa] Allergy Hives Verified 07/10/18 15:31 fluconazole Allergy Anaphylatic Verified 07/10/18 15:31 Shock midazolam [From Versed] Allergy Unknown Verified 07/10/18 15:31 Reaction Details nitrofurantoin Allergy does not Verified 07/10/18 15:31 [From Macrobid] work Sulfa (Sulfonamide Allergy Hives Verified 07/10/18 15:31 Antibiotics) venlafaxine [From Effexor] Allergy Hives Verified 07/10/18 15:31 PMH/Surg Hx/FS Hx/Imm Hx Previously Healthy: Yes Endocrine/Hematology History: Denies: Hx Anticoagulant Therapy, Hx Blood Disorders, Hx Diabetes Cardiovascular History: Denies: Hx Hypertension, Hx Pacemaker/ICD, Other Cardiovascular Problems/ Disorders Respiratory History: Reports: Hx Asthma - as a child Denies: Other Respiratory Problems/Disorders GI History: Reports: Hx Gastroesophageal Reflux Disease, Hx Irritable Bowel, Hx Ulcer, Other GI Disorders - had gastric bypass History: Reports: Other Problems/Disorders - frequent UTI's in the past Denies: Hx Renal Disease Musculoskeletal History: Reports: Hx Arthritis - spine, Hx Back Problems - DDD dx'd in 's; laminectomy in 's - chronic LBP w/ radicular Rt pain, Other Musculoskeletal History - degen disc Sensory History: Denies: Hx Contacts or Glasses, Hx Hearing Aid Opthamlomology History: Denies: Hx Contacts or Glasses Neurological History: Reports: Hx Migraine, Hx Nerve Disease - neuropathy right leg, nerve damage Denies: Other Neuro Impairments/Disorders Psychiatric History: Reports: Hx Anxiety - on meds, Hx Depression - on meds, Hx Post Traumatic Stress Disorder, Other Psychiatric Issues/Disorders - agoraphobia Denies: Hx Panic Disorder - Surgical History Surgical History: Yes Surgery Procedure, Year, and Place: hysterectomy,2009, [place]. eustacian tube dysfunction surgery,2016. L5-S1 laminectomy & [id number],. revision of laminectomy & discectomy 2008,. csection, 2008. LASIK EYE,. GALLBLADDER, 2017. RUE AND Y GASTRIC BYPASS, 2013, [place]. 2018, right ovary removed, [place] Hx Anesthesia Reactions: Yes - high tolerance to pain med and anesthesia Infectious Disease History: No Infectious Disease History: Denies: Traveled Outside the [place] in Last 30 Days - Family History Known Family History: Positive: Non-Contributory - Social History Occupation: Disabled Lives: With Family Alcohol Use: None Hx Substance Use: No Substance Use Type: Reports: None Hx Tobacco Use: No Smoking Status (MU): Former Smoker Amount Used/How Often: pack a day for 5 yrs Review of Systems Constitutional: Negative Negative: Fever, Chills Eyes: Negative ENT: Negative Cardiovascular: Negative Respiratory: Negative Positive: Abdominal Pain, Nausea. Negative: Vomiting, Diarrhea Genitourinary: Negative Negative: dysuria, discharge, flank pain All Other Systems Reviewed And Are Negative: Yes Physical Exam Triage Information Reviewed: Yes Vital Signs On Initial Exam: Initial Vitals Temp Pulse Resp BP Pulse Ox 97.4 F 104 20 112/83 100 08/27/18 07:38 08/27/18 07:38 08/27/18 07:38 08/27/18 07:38 08/27/18 07:38 Vital Signs Reviewed: Yes Appearance: Positive: Pain Distress - Pt. lying in bed with knees pulled to chest. Appears in pain but nontoxic. Skin: Positive: Warm, Dry Head/Face: Positive: Normal Head/Face Inspection Eyes: Positive: Normal, EOMI Neck: Positive: Supple Respiratory/Lung Sounds: Positive: Clear to Auscultation, Breath Sounds Present Cardiovascular: Positive: Normal, RRR Abdomen Description: Positive: Other: - Abd. is soft with tenderness in all quadrants on light palpation but primarily noted to RLQ. No rebound tenderness or guarding. Diagnostics - Vital Signs Vital Signs Temp Pulse Resp BP Pulse Ox 08/27/18 07:38 97.4 F 104 20 112/83 100 - Laboratory Result Diagrams: 08/27/18 08:08 08/27/18 08:08 Lab Statement: Any lab studies that have been ordered have been reviewed, and results considered in the medical decision making process. Abdominal Pain Fem Course/Dx - Course Course Of Treatment: Pt. presenting with significant RLQ pain. Afebrile. CT scan and labs ordered. Pt. given toradol for pain. Blood work is unremarkable. CT per radiology: IMPRESSION: 1. Large stool volume throughout the colon. 2. Status post cholecystectomy. 3. Additional postoperative changes as above. Suspect pain is secondary to constipation. On re-exam pt. resting comfortably. Results discussed. WIll dc home with mag citrate. Advised to increased fluids and fiber in diet. To take a stool softener with chronic narcotics. To. fu with pcp and return to ER if sxs change or worsen. Pt. understands and agrees with plan. - Diagnoses Differential Diagnosis: Positive: Appendicitis, Bowel Obstruction, Constipation , Urinary Tract Infection Provider Diagnoses: Constipation, Abdominal pain Discharge - Sign-Out/Discharge Documenting (check all that apply): Patient Departure Patient Received Moderate/Deep Sedation with Procedure: No - Discharge Plan Condition: Good Disposition: HOME Patient Education Materials: Constipation (ED), Acute Abdominal Pain (ED) Referrals: Hank Edwards MD [Primary Care Provider] - Additional Instructions: Schedule a follow up appointment with PCP in 2-3 days for recheck Take magnesium citrate as directed Increase fluids and fiber in diet Recommend taking a daily stool softener while taking narcotics Return to ER if symptoms change or worsen - Billing Disposition and Condition Condition: GOOD Disposition: Home
[2018-08-27 08:15] LABS: ABS Eosinophils 0.2 10^3/ul (0-0.6); ABS Lymphocytes 1.9 10^3/ul (1.0-4.8); ABS Monocytes 0.3 10^3/ul (0-0.8); ABS Neutrophils 2.3 10^3/ul (1.5-7.7); Eosinophil % 4.7 %; Hematocrit 40 % (35-47); Hemoglobin 13.8 g/dL (12.0-16.0); Lymphocyte % 39.8 %; Mean Corpuscular HGB Conc 35 g/dL (31-36); Mean Corpuscular Hemoglobin 32 pg (27-31); Mean Corpuscular Volume 93 fL (80-97); Mean Platelet Volume 8.1 fL (7.4-10.4); Platelet Count 171 10^3/uL (150-450); Red Blood Count 4.27 10^6 /uL (3.70-4.87); Red Cell Distribution Width 13 % (10-15); White Blood Count 4.8 10^3/uL (3.5-10.8)
[2018-08-27 08:19] LABS: Urine Appearance Clear; Urine Bilirubin Negative (Negative); Urine Blood Negative (Negative); Urine Color Yellow; Urine Glucose Negative (Negative); Urine Ketones Negative (Negative); Urine Nitrite Negative (Negative); Urine Protein Negative (Negative); Urine Specific Gravity 1.006 (1.010-1.030); Urine Urobilinogen Negative (Negative)
[2018-08-27 08:39] LABS: ALT 24 U/L (7-52); AST 24 U/L (13-39); Albumin 4.5 g/dL (3.2-5.2); Albumin/Globulin Ratio 1.8 (1-3); Alkaline Phosphatase 76 U/L (34-104); Anion Gap 6 mmol/L (2-11); BUN/Creatinine Ratio 23.9 (8-20); Blood Urea Nitrogen 16 mg/dL (6-24); C Reactive Protein < 1.00 mg/L (<8.01); CO2 Carbon Dioxide 25 mmol/L (22-32); Calcium 9.4 mg/dL (8.6-10.3); Chloride 111 mmol/L (101-111); EGFR African American 118.6 (>60); Globulin 2.5 g/dL (2-4); Glucose 101 mg/dL (70-100); Potassium 3.8 mmol/L (3.5-5.0); Sodium 142 mmol/L (135-145)
[2018-08-27] MEDS ORDERED: Iohexol 300* (CONTRAST) 10 ML SDV IV ONE (10:15)
[2018-08-27] MEDS ORDERED: Morphine 4 MG/ML VIAL (1 ml) 4 MG/ML VIAL IV ONE (10:55)
[2018-08-27] MEDS ORDERED: Magnesium CITRATE* 300 ML BTL PO ONE (11:47)
[2018-08-27 12:09] VITALS: BP 109/79
== END 2018-08-27 12:08 | disposition home or self-care (01) ==
LOC: ED 07:36
DX: K59.00 Constipation, unspecified (principal); Z90.710 Acquired absence of both cervix and uterus; Z98.84 Bariatric surgery status; Z90.49 Acquired absence of other specified parts of digestive tract; Z88.2 Allergy status to sulfonamides; Z88.8 Allergy status to other drugs, medicaments and biological substances; Z87.891 Personal history of nicotine dependence
CPT/HCPCS: 36415; 74177; 80053; 81003; 83605; 83690; 85025; 86140; 96361; 96374; 96375; 99283; A9270-GY; J1885; J2270; J2405; Q9967